=== PATIENT | female | born 1985 | race Caucasian/White ===

== ENCOUNTER 2018-08-19 16:05 | Emergency (ER) | payer MEDICAID ==
[~2018-08-19] VITALS: Ht 157.5 cm; Wt 126.8 kg
[2018-08-19] MEDS ORDERED: KETOROLAC 30 MG/ML VIAL (J1885) IV ONE (16:30)
[2018-08-19] MEDS ORDERED: KETOROLAC 30 MG/ML VIAL (J1885) IM ONE (16:30)
[2018-08-19 16:52] LABS: BASO # 0.1 10^3/uL (0.0-0.2); BASO % 0.7 % (0.0-1.0); EOS # 0.3 10^3/uL (0.0-0.50); EOS % 3.8 % (0.0-3.0); HEMATOCRIT 36.2 % (36.0-47.0); HEMOGLOBIN 11.6 g/dl (12.0-15.5); LYMPH # 3.2 10^3/uL (1.5-4.5); LYMPH % 35.7 % (24.0-44.0); MEAN CORPUSCULAR HEMOGLOBIN 26.1 pg (27.0-33.0); MEAN CORPUSCULAR VOLUME 81.5 fl (80.0-96.0); MONO # 0.8 10^3/uL (0.0-0.8); MONO % 8.9 % (0.0-5.0); NEUTROPHILS # 4.5 10^3/uL (1.8-7.7); NEUTROPHILS % 50.7 % (36.0-66.0); PLATELET COUNT, AUTOMATED 394 10^3/uL (150-450); RED BLOOD COUNT 4.44 10^6/uL (4.00-5.40); WHITE BLOOD COUNT 8.9 10^3/uL (4.0-10.0)
[2018-08-19 16:57] LABS: INR 0.98; PARTIAL THROMBOPLASTIN TIME 31.2 SECONDS (25.4-37.6); PROTHROMBIN TIME 13.1 SECONDS (12.1-14.4)
[2018-08-19 17:19] LABS: ALBUMIN 3.5 GM/DL (3.2-5.2); ALT/SGPT 24 U/L (12-78); AMYLASE 34 U/L (25-115); BILIRUBIN,DIRECT < 0.1 MG/DL (0.0-0.2); BILIRUBIN,TOTAL 0.3 MG/DL (0.2-1.0); BLOOD UREA NITROGEN 9 MG/DL (7-18); CALCIUM LEVEL 8.6 MG/DL (8.5-10.1); CARBON DIOXIDE LEVEL 28 MEQ/L (21-32); CHLORIDE LEVEL 106 MEQ/L (98-107); GLOMERULAR FILTRATION RATE > 60.0 (>60); GLUCOSE, FASTING 124 MG/DL (70-100); LIPASE 146 U/L (73-393); POTASSIUM SERUM 3.6 MEQ/L (3.5-5.1); SODIUM LEVEL 140 MEQ/L (136-145); TOTAL PROTEIN 7.6 GM/DL (6.4-8.2)
--- NOTE | 2018-08-19 17:56 | REP ---
CT ABDOMEN AND PELVIS WITHOUT CONTRAST: CT abdomen and pelvis was performed without IV contrast. Visualized lung bases are clear. Liver, spleen, adrenals, pancreas and kidneys are grossly unremarkable. I see no renal, ureteral or bladder calculus. There is no evidence of hydroureteronephrosis. There is no abdominal aortic aneurysm. There is no adenopathy. There is no free air or free fluid. I see no bowel wall thickening. There is scattered diverticula of the colon without evidence of acute diverticulitis. There is no evidence of appendicitis. There appears to be a cystic structure of the right ovary approximately 3 cm in diameter. The urinary bladder is mildly distended and grossly unremarkable. IMPRESSION: No renal, ureteral, or bladder calculus and no hydroureteronephrosis. No evidence of appendicitis. No free air or free fluid. There is a 3 mm cystic structure of the right ovary. A few scattered colonic diverticula without evidence of acute diverticulitis. Electronically Signed by Gabino Bagley MD 08/19/2018 07:47 P
[2018-08-19 17:57] VITALS: BP 163/94
[2018-08-19] MEDS ORDERED: MACR100C43 PO (17:58)
[2018-08-19] MEDS ORDERED: ROBA500T PO (17:58)
[2018-08-19] MEDS ORDERED: IBUP-1022 PO (17:58)
== END 2018-08-19 18:07 | disposition home or self-care (01) ==
LOC: M ED 16:05
DX: N39.0 Urinary tract infection, site not specified (principal); Z87.442 Personal history of urinary calculi; N83.291 Other ovarian cyst, right side; K57.30 Diverticulosis of large intestine without perforation or abscess without bleeding; Z88.5 Allergy status to narcotic agent; Z91.018 Allergy to other foods
CPT/HCPCS: 36415; 74176; 80048; 80076; 81001; 82150; 83690; 85025; 85610; 85730; 87086; 96374; 99284; J1885

== ENCOUNTER → 2018-09-27 | Outpatient (REF) | payer MEDICAID ==
[~2018-09-27] MED LIST: IBUP-1022 PO; MACR100C43 PO; ROBA500T PO
[2018-09-27 16:58] LABS: CHOLESTEROL RISK RATIO 3.651 (<5); THYROID STIMULATING HORMONE 1.6 uIU/ML (0.358-3.740)
[2018-09-27 17:00] LABS: TOTAL 25(OH) VITAMIN D 20.9 NG/ML (30.0-100.0)
[2018-09-27 18:19] LABS: HEMOGLOBIN A1c 5.7 %
[2018-09-30 00:08] LABS: Lyme Disease IgG/IgM Antibodie <0.91 ISR (0.00-0.90); Lyme Disease IgM Ab Quantitati <0.80 index (0.00-0.79)
== END ==
LOC: M LAB REF 15:41
PROVIDERS: ATTEND Family Medicine
DX: Z13.228 Encounter for screening for other metabolic disorders (principal)

== ENCOUNTER → 2018-10-28 | Outpatient (CLI) | payer MEDICAID ==
[~2018-10-28] MED LIST changes: +AUGM500T34 PO; +CITA20TA6 PO; +LISI-538 PO; +METF-791 PO; +NORC1TAB7 PO
--- NOTE | 2018-10-28 09:30 | REPVR ---
EXAM: MR Lumbar Spine Without Contrast. EXAM DATE/TIME: 10/28/2018 8:22 AM CLINICAL HISTORY: 33 years old, female; Low back pain; Additional info: Acute low back pain TECHNIQUE: Imaging protocol: Multiplanar magnetic resonance images of the lumbar spine without intravenous contrast. COMPARISON: No relevant prior studies available. FINDINGS: Vertebrae: Unremarkable. Spinal cord: Normal signal. No cord compression. L1-L2: No significant disc disease. No significant spinal stenosis. L2-L3: No significant disc disease. No significant spinal stenosis. L3-L4: No significant disc disease. No significant spinal stenosis. L4-L5: Mild loss of signal within the disc at L4-5 on the T2 weighted images reflecting disc desiccation.minimal fluid noted within the facet joint on the left. Mild facet arthropathy. No significant spinal stenosis. L5-S1: No significant disc disease. No significant spinal stenosis. Soft tissues: Unremarkable. IMPRESSION: Mild degenerative disc disease and facet arthropathy at L4-5. No stenosis. No disc herniation. Electronically signed by: My Parnell On 10/28/2018 09:30:09 AM
== END ==
LOC: M RAD 07:57
PROVIDERS: ATTEND Family Medicine
DX: M54.5 Low back pain (principal)

== ENCOUNTER 2018-12-28 17:50 | Emergency (ER) | payer MEDICAID ==
[~2018-12-28] VITALS: Ht 157.5 cm; Wt 122.7 kg
[~2018-12-28 17:50] MED LIST changes: -AUGM500T34 PO; -CITA20TA6 PO; -LISI-538 PO; -METF-791 PO; -NORC1TAB7 PO
[2018-12-28] MEDS ORDERED: CITA20TA6 PO (18:06)
[2018-12-28] MEDS ORDERED: LISI-538 PO (18:06)
[2018-12-28] MEDS ORDERED: ACETAMINOPHEN 325 MG TAB PO ONE (19:15)
[2018-12-28 19:54] LABS: BASO # 0.1 10^3/uL (0.0-0.2); BASO % 0.9 % (0.0-1.0); EOS # 0.1 10^3/uL (0.0-0.5); EOS % 1.5 % (0.0-3.0); HEMATOCRIT 37.8 % (36.0-47.0); HEMOGLOBIN 12.1 g/dl (12.0-15.5); LYMPH # 2.8 10^3/uL (1.5-5.0); LYMPH % 32.6 % (24.0-44.0); MEAN CORPUSCULAR HEMOGLOBIN 25.4 pg (27.0-33.0); MEAN CORPUSCULAR VOLUME 79.4 fl (80.0-96.0); MONO # 0.7 10^3/uL (0.0-0.8); MONO % 8.5 % (0.0-5.0); NEUTROPHILS # 4.8 10^3/uL (1.5-8.5); NEUTROPHILS % 56.2 % (36.0-66.0); PLATELET COUNT, AUTOMATED 415 10^3/uL (150-450); RED BLOOD COUNT 4.76 10^6/uL (4.00-5.40); WHITE BLOOD COUNT 8.6 10^3/uL (4.0-10.0)
[2018-12-28 20:07] LABS: ALBUMIN 3.7 GM/DL (3.2-5.2); ALT/SGPT 22 U/L (12-78); BILIRUBIN,DIRECT 0.1 MG/DL (0.0-0.2); BILIRUBIN,TOTAL 0.4 MG/DL (0.2-1.0); BLOOD UREA NITROGEN 10 MG/DL (7-18); CARBON DIOXIDE LEVEL 29 MEQ/L (21-32); CHLORIDE LEVEL 105 MEQ/L (98-107); CREATININE FOR GFR 0.66 MG/DL (0.55-1.30); GLOMERULAR FILTRATION RATE > 60.0 (>60); GLUCOSE, FASTING 95 MG/DL (70-100); POTASSIUM SERUM 3.5 MEQ/L (3.5-5.1); SODIUM LEVEL 139 MEQ/L (136-145); THYROID STIMULATING HORMONE 0.829 uIU/ML (0.358-3.740); TOTAL PROTEIN 7.6 GM/DL (6.4-8.2)
[2018-12-28 20:15] LABS: HCG, SERUM QUALITATIVE NEGATIVE (NEGATIVE)
[2018-12-28 21:09] VITALS: BP 157/92
== END 2018-12-28 21:10 | disposition home or self-care (01) ==
LOC: M ED 17:50
DX: F43.0 Acute stress reaction (principal); F41.1 Generalized anxiety disorder; I10 Essential (primary) hypertension; Z79.899 Other long term (current) drug therapy; Z88.5 Allergy status to narcotic agent; Z91.018 Allergy to other foods

== ENCOUNTER 2019-02-05 04:24 | Emergency (ER) | payer MEDICAID ==
[~2019-02-05] VITALS: Ht 157.5 cm; Wt 131.8 kg
[~2019-02-05 04:24] MED LIST changes: +CITA20TA6 PO; +LISI-538 PO
[2019-02-05] MEDS ORDERED: AUGM500T34 PO (04:36)
[2019-02-05 04:39] VITALS: BP 136/75
[2019-02-05] MEDS ORDERED: ceFAZolin 1GM INJ (J0690 PER 500MG) IM ONE (04:45)
[2019-02-05] MEDS ORDERED: ACETAMINOPHEN 500 MG TAB PO ONE (04:45)
[2019-02-05] MEDS ORDERED: AUGMENTIN 875 MG TAB PO ONE (04:45)
[2019-02-06] MEDS ORDERED: NORC1TAB7 PO (18:39)
== END 2019-02-05 06:06 | disposition home or self-care (01) ==
LOC: M ED 04:24
DX: L02.221 Furuncle of abdominal wall (principal); I10 Essential (primary) hypertension; F41.9 Anxiety disorder, unspecified; Z79.899 Other long term (current) drug therapy; Z91.018 Allergy to other foods; Z88.5 Allergy status to narcotic agent
CPT/HCPCS: 96372; 99283; J0690

== ENCOUNTER 2019-02-06 16:44 | Emergency (ER) | payer MEDICAID ==
[~2019-02-06] VITALS: Ht 157.5 cm; Wt 129.6 kg
[2019-02-06 16:44] VITALS: BP 191/89
[~2019-02-06 16:44] MED LIST changes: +AUGM500T34 PO
[2019-02-06] MEDS ORDERED: NORCO, ANEXSIA 5/325MG TABLET (HYDROcodone/ACETAMINOPHEN) PO ONE (18:15)
[2019-02-06] MEDS ORDERED: LIDOCAINE 1% MDV 20ML VIAL IM ONE (18:15)
[2019-02-06] MEDS ORDERED: NORC1TAB7 PO (18:39)
[2019-02-06] MEDS ORDERED: NORCO 5/325MG TABLET (BULK FOR ED) PO ONE (18:45)
== END 2019-02-06 18:53 | disposition home or self-care (01) ==
LOC: EEVIPCON 16:44 → M ED 16:44
DX: L02.221 Furuncle of abdominal wall (principal); I10 Essential (primary) hypertension; Z88.6 Allergy status to analgesic agent; Z91.018 Allergy to other foods; Z79.84 Long term (current) use of oral hypoglycemic drugs; Z79.899 Other long term (current) drug therapy

== ENCOUNTER 2019-03-13 20:09 | Emergency (ER) | payer MEDICAID ==
[~2019-03-13] VITALS: Ht 157.5 cm; Wt 125.9 kg
[~2019-03-13 20:09] MED LIST changes: +NORC1TAB7 PO
[2019-03-13] MEDS ORDERED: METF-791 PO (20:25)
[2019-03-13 20:55] LABS: BASO # 0.1 10^3/uL (0.0-0.2); BASO % 0.5 % (0.0-1.0); EOS # 0.3 10^3/uL (0.0-0.5); EOS % 3.3 % (0.0-3.0); HEMATOCRIT 39.3 % (36.0-47.0); HEMOGLOBIN 12.2 g/dl (12.0-15.5); LYMPH # 3.8 10^3/uL (1.5-5.0); LYMPH % 37.3 % (24.0-44.0); MEAN CORPUSCULAR HEMOGLOBIN 24.4 pg (27.0-33.0); MEAN CORPUSCULAR VOLUME 78.4 fl (80.0-96.0); MONO # 0.5 10^3/uL (0.0-0.8); MONO % 5.3 % (0.0-5.0); NEUTROPHILS # 5.4 10^3/uL (1.5-8.5); NEUTROPHILS % 53.2 % (36.0-66.0); PLATELET COUNT, AUTOMATED 391 10^3/uL (150-450); RED BLOOD COUNT 5.01 10^6/uL (4.00-5.40); WHITE BLOOD COUNT 10.2 10^3/uL (4.0-10.0)
[2019-03-13 21:15] LABS: BLOOD UREA NITROGEN 8 MG/DL (7-18); CARBON DIOXIDE LEVEL 29 MEQ/L (21-32); CHLORIDE LEVEL 104 MEQ/L (98-107); CREATININE FOR GFR 0.68 MG/DL (0.55-1.30); GLOMERULAR FILTRATION RATE > 60.0 (>60); GLUCOSE, FASTING 123 MG/DL (70-100); POTASSIUM SERUM 3.3 MEQ/L (3.5-5.1); SODIUM LEVEL 141 MEQ/L (136-145)
[2019-03-13 21:45] LABS: HCG, SERUM QUALITATIVE NEGATIVE (NEGATIVE)
[2019-03-13] MEDS ORDERED: NORCO, ANEXSIA 5/325MG TABLET (HYDROcodone/ACETAMINOPHEN) PO ONE (21:45)
[2019-03-14 00:08] VITALS: BP 151/85
--- NOTE | 2019-03-14 08:38 | REP ---
Pelvic sonography: Repeat dictation. History: Heavy vaginal bleeding. Pain. History of fibroids. Preliminary report is provided at time of exam by [facility]. Findings: Exam quality was inhibited by patient body habitus. Uterus is mildly enlarged measuring 10.0 x 5.5 x 7.5 cm. Endometrial echo is 0.7 cm thick and centrally placed. Uterine myometrium is heterogeneous. There is a 4.2 x 4.5 x 4.0 cm uterine fibroid at the anterior fundal region. Visualized bladder hollis are smooth. The right ovary could not be visualized either transabdominally or transvaginally. Left ovary dimensions are normal at 2.5 x 1.9 x 2.0 cm. Doppler flow is present in the right ovary with resistive index 0.52. Impression: The right ovary was not directly visualized. No adnexal mass, cyst or free fluid is seen on either side. 4.5 cm uterine fibroid suspected. Electronically Signed by Cricket Roman MD 03/14/2019 10:35 A
--- NOTE | 2019-03-14 13:09 | ED PDOC ---
Post-Departure Follow-Up dr carbone faxed formal report of pelvic us for fu Ayala Mccallum MD Mar 14, 2019 13:09
== END 2019-03-14 00:12 | disposition home or self-care (01) ==
LOC: M ED 20:09
DX: N92.0 Excessive and frequent menstruation with regular cycle (principal); D25.9 Leiomyoma of uterus, unspecified; I10 Essential (primary) hypertension; F31.9 Bipolar disorder, unspecified; E66.9 Obesity, unspecified; Z87.442 Personal history of urinary calculi; F17.210 Nicotine dependence, cigarettes, uncomplicated; Z91.018 Allergy to other foods; Z88.5 Allergy status to narcotic agent; Z79.84 Long term (current) use of oral hypoglycemic drugs; Z79.899 Other long term (current) drug therapy

== ENCOUNTER 2019-05-22 16:29 | Emergency (ER) | payer MEDICAID ==
[~2019-05-22] VITALS: Ht 157.5 cm; Wt 128.5 kg
[~2019-05-22 16:29] MED LIST changes: -CLON-412; -GABA-843; -PENI500T PO; -TRAZ-252 PO; -tylenol
[2019-05-22] MEDS ORDERED: CLON-412 (16:35)
[2019-05-22] MEDS ORDERED: GABA-843 (16:35)
[2019-05-22] MEDS ORDERED: tylenol (16:35)
[2019-05-22] MEDS ORDERED: TRAZ-252 PO (16:39)
[2019-05-22] MEDS ORDERED: PENI500T PO (17:02)
[2019-05-22] MEDS ORDERED: NORC1TAB7 PO (17:02)
[2019-05-22 17:08] VITALS: BP 161/74
== END 2019-05-22 17:16 | disposition home or self-care (01) ==
LOC: M ED 16:29
DX: K04.7 Periapical abscess without sinus (principal); K08.89 Other specified disorders of teeth and supporting structures; G50.1 Atypical facial pain; E11.9 Type 2 diabetes mellitus without complications; I10 Essential (primary) hypertension; Z88.5 Allergy status to narcotic agent; Z91.018 Allergy to other foods; Z79.84 Long term (current) use of oral hypoglycemic drugs; Z79.899 Other long term (current) drug therapy

== ENCOUNTER → 2019-05-22 | Outpatient (CLI) | payer MEDICAID ==
[~2019-05-22] MED LIST changes: +CLON-412; +GABA-843; +METF-791 PO; +PENI500T PO; +TRAZ-252 PO; +tylenol
--- NOTE | 2019-05-22 10:20 | REP ---
Thyroid sonography: History: Visible mass anterior neck. No comparison imaging. Findings: High-resolution bilateral thyroid sonography demonstrates a the solid thyroid nodule to the right of midline in the isthmus measuring 3.7 x 3.5 x 2.5 cm. In the midline, isthmic AP diameter is 2.5 cm. Right lobe dimensions are 5.2 x 2.0 x 1.6 cm. Left thyroid lobe dimensions are 4.5 x 1.6 x 1.7 cm. Impression: Large solid thyroid nodule involving the right lobe and the right side of the thyroid isthmus. Consider fine needle aspiration biopsy. Electronically Signed by Cricket Roman MD 05/22/2019 10:12 A
== END ==
LOC: M RAD 09:39
PROVIDERS: ATTEND Physician Assistant
DX: R22.1 Localized swelling, mass and lump, neck (principal)

== ENCOUNTER → 2019-05-23 | Outpatient (CLI) | payer MEDICAID ==
[~2019-05-23] MED LIST changes: +CLON-412; +GABA-843; +PENI500T PO; +TRAZ-252 PO; +tylenol
--- NOTE | 2019-05-23 15:44 | REP ---
LEFT WRIST, FOUR VIEWS: There is no evidence of an acute fracture, dislocation or intrinsic bone disease. IMPRESSION: No fracture or dislocation. Electronically Signed by Gabino Bagley MD 05/24/2019 09:15 A
== END ==
LOC: M RAD 13:21
PROVIDERS: ATTEND Physician Assistant Medical
DX: M25.532 Pain in left wrist (principal)

== ENCOUNTER → 2019-06-02 | Outpatient (CLI) | payer MEDICAID ==
[~2019-06-02] MED LIST changes: +LISI10TA4 PO
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
== END ==
LOC: M PAIN 10:45
PROVIDERS: ATTEND Anesthesiology
DX: M79.18 Myalgia, other site (principal); M54.5 Low back pain; G89.29 Other chronic pain; M47.816 Spondylosis without myelopathy or radiculopathy, lumbar region; E11.9 Type 2 diabetes mellitus without complications; Z79.84 Long term (current) use of oral hypoglycemic drugs; Z79.899 Other long term (current) drug therapy; Z87.891 Personal history of nicotine dependence; Z88.5 Allergy status to narcotic agent; Z88.6 Allergy status to analgesic agent; Z88.8 Allergy status to other drugs, medicaments and biological substances; Z91.018 Allergy to other foods

== ENCOUNTER 2019-06-16 21:30 | Emergency (ER) | payer MEDICAID ==
[~2019-06-16] VITALS: Ht 157.5 cm; Wt 129.6 kg
[2019-06-16] MEDS ORDERED: NS 1,000 ML IV ONE (22:00)
[2019-06-16] MEDS ORDERED: METOCLOPRAMIDE INJ 10MG/2ML VIAL (J2765) IV ONE (22:00)
[2019-06-16] MEDS ORDERED: lisinopriL 10 MG TAB PO ONE (22:00)
[2019-06-16 22:14] VITALS: BP 174/73
[2019-06-16 22:22] VITALS: BP 174/115
[2019-06-16 22:23] LABS: BASO # 0.1 10^3/uL (0.0-0.2); BASO % 0.6 % (0.0-1.0); EOS # 0.2 10^3/uL (0.0-0.5); EOS % 1.6 % (0.0-3.0); HEMATOCRIT 41.9 % (36.0-47.0); HEMOGLOBIN 13.3 g/dl (12.0-15.5); LYMPH # 2.9 10^3/uL (1.5-5.0); LYMPH % 25.5 % (24.0-44.0); MEAN CORPUSCULAR HEMOGLOBIN 24.4 pg (27.0-33.0); MEAN CORPUSCULAR HGB CONC 31.7 g/dl (32.0-36.5); MONO # 0.8 10^3/uL (0.0-0.8); NEUTROPHILS # 7.3 10^3/uL (1.5-8.5); NEUTROPHILS % 64.9 % (36.0-66.0); PLATELET COUNT, AUTOMATED 431 10^3/uL (150-450); RED BLOOD COUNT 5.44 10^6/uL (4.00-5.40); WHITE BLOOD COUNT 11.2 10^3/uL (4.0-10.0)
[2019-06-16] MEDS ORDERED: KETOROLAC 30 MG/ML VIAL (J1885) IV ONE (22:30)
[2019-06-16 22:54] LABS: ALBUMIN 4.1 GM/DL (3.2-5.2); ALT/SGPT 23 U/L (12-78); BILIRUBIN,DIRECT 0.2 MG/DL (0.0-0.2); BILIRUBIN,TOTAL 0.9 MG/DL (0.2-1.0); BLOOD UREA NITROGEN 11 MG/DL (7-18); CALCIUM LEVEL 9.4 MG/DL (8.5-10.1); CARBON DIOXIDE LEVEL 31 MEQ/L (21-32); CHLORIDE LEVEL 102 MEQ/L (98-107); CK-MB VALUE MASS < 1.0 NG/ML (<3.6); CPK CREATINE PHOSPHOKINASE 47 U/L (26-192); CREATININE FOR GFR 0.74 MG/DL (0.55-1.30); GLOMERULAR FILTRATION RATE > 60.0 (>60); GLUCOSE, FASTING 116 MG/DL (70-100); LIPASE 78 U/L (73-393); MB/CK RELATIVE INDEX 2.13 (< OR =4); POTASSIUM SERUM 3.6 MEQ/L (3.5-5.1); SODIUM LEVEL 138 MEQ/L (136-145); TOTAL PROTEIN 8.7 GM/DL (6.4-8.2); TROPONIN I < 0.02 NG/ML (< 0.10)
--- NOTE | 2019-06-17 08:29 | REP ---
CHEST PORTABLE: REASON: Chest pain. FINDINGS: The technique utilized in obtaining the radiograph has magnified the cardiac silhouette and accentuated the interstitial markings. The superior mediastinal structures are midline. The cardiac silhouette is unremarkable in size, shape, and position. The diaphragmatic surfaces of the lungs are regular, and the costophrenic angles are clear. The pulmonary tobias are clear. The imaged osseous structures are intact. IMPRESSION: There is no acute cardiopulmonary disease. Electronically Signed by Herrera Burch DO 06/17/2019 08:31 A
--- NOTE | 2019-06-17 09:27 | REP ---
CT BRAIN WITHOUT CONTRAST: REASON FOR EXAM: Headache. Preliminary report was given by [facility] a the time the examination was performed. There are no priors for comparison. TECHNIQUE: 4.5 mm contiguous transaxial sections were obtained from the skull base to the cerebral convexities with thin cuts through the posterior fossa without the administration of intravenous contrast. FINDINGS: The ventricles and sulci are consistent with the patient's age. There are no extra-axial fluid collections. There is no mass effect. The deep cerebral white matter is consistent with the patient's age. The orbital and petrous structures, cerebellopontine angles, and posterior fossa are unremarkable. The sella turcica, cavernous, and paracavernous structures are essentially unremarkable. The visualized portions of the paranasal sinuses and mastoid air cells are clear. Images of the skull base show no gross abnormality. IMPRESSION: Essentially unremarkable CT examination of the brain. Electronically Signed by Herrera Burch DO 06/17/2019 09:44 A
--- NOTE | 2019-06-17 19:28 | ECGEPIP ---
[facility] - ED Test Date: 2019-06-16 Pat Name: KVNG CARBONE Department: Room: - Gender: Female School Curriculum Developer: : 1985 Requested By: ROSIE GUPTA Order Number: [id number] Reading MD: Yesica Chaparro Measurements Intervals [place] Rate: 89 P: 37 PA: 185 QRS: 15 QRSD: 119 T: 17 QT: 383 QTc: 468 Interpretive Statements SINUS RHYTHM MODERATE INTRAVENTRICULAR CONDUCTION DELAY NSTTW abnormalities NO PRIOR Electronically Signed on 06-17-2019 19:27:44 EDT by Yesica Chaparro
== END 2019-06-16 22:45 | disposition left against medical advice (07) ==
LOC: M ED 21:30
DX: R51 Headache (principal); R07.9 Chest pain, unspecified; Z53.21 Procedure and treatment not carried out due to patient leaving prior to being seen by health care provider; C32.9 Malignant neoplasm of larynx, unspecified; E11.9 Type 2 diabetes mellitus without complications; I10 Essential (primary) hypertension; R56.9 Unspecified convulsions; F31.9 Bipolar disorder, unspecified; Z88.5 Allergy status to narcotic agent; Z91.018 Allergy to other foods; Z79.84 Long term (current) use of oral hypoglycemic drugs; Z79.899 Other long term (current) drug therapy
CPT/HCPCS: 70450; 71045; 80048; 80076; 82550; 82553; 83690; 84439; 84443; 85025; 85379; 93005; 93041; 94760; 96361; 96374; 99284; J2765

== ENCOUNTER → 2019-06-20 | Outpatient (CLI) | payer MEDICAID ==
[2019-06-20 11:33] LABS: FREE T3 3.1 PG/ML (2.2-4.0); FREE T4 1.31 NG/DL (0.76-1.46)
[2019-06-21 14:00] LABS: THYROID PEROXIDASE ANTIBODY < 28.0 U/ML (<60.0)
== END ==
LOC: M LAB 10:03
PROVIDERS: ATTEND Otolaryngology
DX: E04.9 Nontoxic goiter, unspecified (principal)

== ENCOUNTER → 2019-07-17 | Outpatient (CLI) | payer MEDICAID ==
[~2019-07-17] MED LIST changes: +ALBU8.5H IH; -CLON-412; +CLON-412 PO; -GABA-843; +GABA-843 PO; -METF-791 PO; +METF-838 PO
[2019-07-17 15:34] LABS: INR 0.88; PROTHROMBIN TIME 11.6 SECONDS (11.8-14.0)
== END ==
LOC: M LAB 14:37
PROVIDERS: ATTEND Otolaryngology
DX: E04.9 Nontoxic goiter, unspecified (principal)

== ENCOUNTER → 2019-07-24 | Outpatient (CLI) | payer MEDICAID ==
[2019-07-24 13:53] LABS: BASO # 0.1 10^3/uL (0.0-0.2); BASO % 0.5 % (0.0-1.0); EOS # 0.2 10^3/uL (0.0-0.5); EOS % 2.1 % (0.0-3.0); HEMOGLOBIN 11.7 g/dl (12.0-15.5); LYMPH # 2.4 10^3/uL (1.5-5.0); LYMPH % 25.2 % (24.0-44.0); MEAN CORPUSCULAR HEMOGLOBIN 25.4 pg (27.0-33.0); MEAN CORPUSCULAR HGB CONC 31.6 g/dl (32.0-36.5); MEAN CORPUSCULAR VOLUME 80.4 fl (80.0-96.0); MONO # 0.6 10^3/uL (0.0-0.8); MONO % 6.6 % (0.0-5.0); NEUTROPHILS # 6.3 10^3/uL (1.5-8.5); NEUTROPHILS % 65.3 % (36.0-66.0); PLATELET COUNT, AUTOMATED 358 10^3/uL (150-450); WHITE BLOOD COUNT 9.7 10^3/uL (4.0-10.0)
[2019-07-24 14:30] LABS: ALBUMIN 3.7 GM/DL (3.2-5.2); ALT/SGPT 24 U/L (12-78); BILIRUBIN,TOTAL 0.6 MG/DL (0.2-1.0); BLOOD UREA NITROGEN 10 MG/DL (7-18); CALCIUM LEVEL 8.4 MG/DL (8.5-10.1); CARBON DIOXIDE LEVEL 27 MEQ/L (21-32); CHLORIDE LEVEL 105 MEQ/L (98-107); CREATININE FOR GFR 0.58 MG/DL (0.55-1.30); GLOMERULAR FILTRATION RATE > 60.0 (>60); GLUCOSE, FASTING 145 MG/DL (70-100); POTASSIUM SERUM 3.7 MEQ/L (3.5-5.1); SODIUM LEVEL 139 MEQ/L (136-145); TOTAL PROTEIN 7.6 GM/DL (6.4-8.2)
[2019-07-24 15:23] LABS: HEMOGLOBIN A1c 6.4 %
== END ==
LOC: M LAB 12:48
PROVIDERS: ATTEND Physician Assistant
DX: Z01.818 Encounter for other preprocedural examination (principal)

== ENCOUNTER → 2019-07-24 | Outpatient (CLI) | payer MEDICAID | LOC: M LABSMTC 12:20 | PROVIDERS: ATTEND Anesthesiology | DX: Z01.818 Encounter for other preprocedural examination (principal); Z11.59 Encounter for screening for other viral diseases | CPT/HCPCS: C8903; U0003 ==

== ENCOUNTER 2019-08-01 19:03 | Emergency (ER) | payer MEDICAID ==
[~2019-08-01] VITALS: Ht 157.5 cm; Wt 127.8 kg
[2019-08-01 19:55] LABS: BASO # 0.1 10^3/uL (0.0-0.2); BASO % 0.5 % (0.0-1.0); EOS # 0.3 10^3/uL (0.0-0.5); EOS % 2.6 % (0.0-3.0); HEMATOCRIT 34.8 % (36.0-47.0); HEMOGLOBIN 11.2 g/dl (12.0-15.5); LYMPH # 3.5 10^3/uL (1.5-5.0); LYMPH % 28.1 % (24.0-44.0); MEAN CORPUSCULAR HEMOGLOBIN 25.5 pg (27.0-33.0); MEAN CORPUSCULAR HGB CONC 32.2 g/dl (32.0-36.5); MEAN CORPUSCULAR VOLUME 79.1 fl (80.0-96.0); MONO # 0.8 10^3/uL (0.0-0.8); MONO % 6.3 % (0.0-5.0); NEUTROPHILS # 7.7 10^3/uL (1.5-8.5); NEUTROPHILS % 61.8 % (36.0-66.0); PLATELET COUNT, AUTOMATED 486 10^3/uL (150-450); WHITE BLOOD COUNT 12.5 10^3/uL (4.0-10.0)
[2019-08-01] MEDS ORDERED: KETOROLAC 30 MG/ML 1ML VIAL IV ONE (20:00)
[2019-08-01 20:22] LABS: ERYTHROCYTE SEDIMENTATION RATE 42 mm/hr (0-20)
[2019-08-01] MEDS ORDERED: ISOVUE-370 76% 100ML VIAL As Ordered ONE (20:32)
[2019-08-01 20:33] LABS: ALBUMIN 3.7 GM/DL (3.2-5.2); ALT/SGPT 31 U/L (12-78); BILIRUBIN,TOTAL 0.4 MG/DL (0.2-1.0); BLOOD UREA NITROGEN 8 MG/DL (7-18); CALCIUM LEVEL 8.9 MG/DL (8.5-10.1); CARBON DIOXIDE LEVEL 30 MEQ/L (21-32); CHLORIDE LEVEL 103 MEQ/L (98-107); CREATININE FOR GFR 0.76 MG/DL (0.55-1.30); GLOMERULAR FILTRATION RATE > 60.0 (>60); GLUCOSE, FASTING 112 MG/DL (70-100); LIPASE 73 U/L (73-393); SODIUM LEVEL 140 MEQ/L (136-145); TOTAL PROTEIN 7.9 GM/DL (6.4-8.2)
[2019-08-01 22:01] VITALS: BP 155/64
--- NOTE | 2019-08-02 12:18 | REP ---
CT abdomen pelvis with IV but without oral contrast: Repeat dictation. History: Abdomen pain. Previous surgery, 3-D 7 days postop. Status post hysterectomy. Preliminary report is provided at the time of the exam by ariella BROWN. CT contrast dose: 100 ml of intravenous Isovue 370. CT findings: Preliminary digital meteorological equipment repairer radiograph is unremarkable. The lung bases are clear. The liver is mildly prominent measuring 20.4 cm in craniocaudal span in the midclavicular line. No focal liver lesion is seen. The spleen measures 14.2 cm in greatest diameter and is also mildly prominent. No focal splenic lesion is seen. Normal adrenal glands are seen bilaterally. The gallbladder is small and contracted. No abnormalities noted in the pancreas. There is a retroaortic left renal vein noted incidentally. No other vascular abnormality is seen. Small and large intestinal bowel loops are normal in the upper abdomen. A small quantity of free intraperitoneal air in the left lower quadrant. There is no evidence of diffuse ascites. There is some postoperative air in the subcutaneous five fat in the left mid abdominal wall consistent with a brisk optic port placement. Some postoperative edema in the anterior abdominal wall to the right of the umbilicus. No abdominal wall defect is seen. The rectus abdomines musculature is somewhat diastatic. There is a small quantity of fluid in the cul-de-sac. This measures approximately 4.5 cm in diameter. The uterus is surgically absent. No adnexal abnormality is seen. Ovaries are normal in appearance. Normal appendix is seen in the right lower quadrant. The kidneys enhance symmetrically are morphologically intact. No bony abnormality. Impression: Small quantity of postoperative fluid in the cul-de-sac post hysterectomy. A small quantity of residual to left lower quadrant free air and air tracking in the left anterior abdominal wall. Diastases of the rectus abdominous musculature. Mildly prominent liver and spleen size. No other acute abnormality. Electronically Signed by Cricket Roman MD 08/02/2019 12:10 P
[2019-08-21] MEDS ORDERED: LISI-538 PO (09:01)
== END 2019-08-01 22:01 | disposition home or self-care (01) ==
LOC: M ED 19:03
DX: N99.89 Other postprocedural complications and disorders of genitourinary system (principal); G89.18 Other acute postprocedural pain; Z90.710 Acquired absence of both cervix and uterus; I10 Essential (primary) hypertension; F31.9 Bipolar disorder, unspecified; F41.9 Anxiety disorder, unspecified; Z91.048 Other nonmedicinal substance allergy status; Z88.6 Allergy status to analgesic agent; Z91.018 Allergy to other foods; Z79.899 Other long term (current) drug therapy
CPT/HCPCS: 36415; 74177; 80053; 83690; 85025; 85652; 87040; 96374; 99283; J1885; Q9967

== ENCOUNTER 2019-08-05 15:14 | Emergency (ER) | payer MEDICAID ==
[~2019-08-05] VITALS: Ht 157.5 cm; Wt 127.2 kg
[~2019-08-05 15:14] MED LIST changes: +GABA-282 PO; -GABA-843 PO; -LISI-538 PO; +LISI10TA22 PO; -LISI10TA4 PO; +LISI20TA33 PO
[2019-08-05 16:26] LABS: BASO # 0.1 10^3/uL (0.0-0.2); BASO % 0.5 % (0.0-1.0); EOS # 0.3 10^3/uL (0.0-0.5); EOS % 2.2 % (0.0-3.0); HEMOGLOBIN 9.8 g/dl (12.0-15.5); LYMPH # 2.1 10^3/uL (1.5-5.0); MEAN CORPUSCULAR HEMOGLOBIN 25.2 pg (27.0-33.0); MEAN CORPUSCULAR HGB CONC 31.6 g/dl (32.0-36.5); MEAN CORPUSCULAR VOLUME 79.7 fl (80.0-96.0); MONO % 7.4 % (0.0-5.0); NEUTROPHILS # 9.7 10^3/uL (1.5-8.5); NEUTROPHILS % 73.1 % (36.0-66.0); PLATELET COUNT, AUTOMATED 410 10^3/uL (150-450); RED BLOOD COUNT 3.89 10^6/uL (4.00-5.40); WHITE BLOOD COUNT 13.2 10^3/uL (4.0-10.0)
[2019-08-05 16:59] LABS: ALBUMIN 3.3 GM/DL (3.2-5.2); BILIRUBIN,DIRECT 0.2 MG/DL (0.0-0.2); BILIRUBIN,TOTAL 0.5 MG/DL (0.2-1.0); TOTAL PROTEIN 7.5 GM/DL (6.4-8.2)
[2019-08-05] MEDS ORDERED: NITROFURANTOIN (MACROBID) 100 MG CAP PO ONE (17:00)
[2019-08-05] MEDS ORDERED: MACR100C43 PO (17:52)
[2019-08-05 18:07] VITALS: BP 133/69
[2019-08-21] MEDS ORDERED: LISI20TA33 PO (09:01)
== END 2019-08-05 18:09 | disposition home or self-care (01) ==
LOC: M ED 15:14
DX: Z04.71 Encounter for examination and observation following alleged adult physical abuse (principal); N39.0 Urinary tract infection, site not specified; I10 Essential (primary) hypertension; F33.9 Major depressive disorder, recurrent, unspecified; F41.9 Anxiety disorder, unspecified; Z79.899 Other long term (current) drug therapy; Z79.84 Long term (current) use of oral hypoglycemic drugs; Z88.5 Allergy status to narcotic agent; Z88.8 Allergy status to other drugs, medicaments and biological substances; Z91.018 Allergy to other foods; Z91.048 Other nonmedicinal substance allergy status

== ENCOUNTER → 2019-08-21 | Outpatient (REF) | payer MEDICAID ==
[~2019-08-21] MED LIST changes: +CALC1CAP31 PO; +CALC200T15 PO; +CEPH500C PO; +CYTO25TA6 PO; +PERCOCET PO
[2019-08-21 17:33] LABS: BASO # 0.1 10^3/uL (0.0-0.2); BASO % 0.6 % (0.0-1.0); EOS # 0.3 10^3/uL (0.0-0.5); EOS % 2.9 % (0.0-3.0); HEMATOCRIT 34.9 % (36.0-47.0); HEMOGLOBIN 10.6 g/dl (12.0-15.5); LYMPH # 3.5 10^3/uL (1.5-5.0); LYMPH % 33.8 % (24.0-44.0); MEAN CORPUSCULAR HEMOGLOBIN 24.5 pg (27.0-33.0); MEAN CORPUSCULAR HGB CONC 30.4 g/dl (32.0-36.5); MEAN CORPUSCULAR VOLUME 80.8 fl (80.0-96.0); MONO # 0.7 10^3/uL (0.0-0.8); MONO % 6.4 % (0.0-5.0); NEUTROPHILS # 5.7 10^3/uL (1.5-8.5); NEUTROPHILS % 55.9 % (36.0-66.0); PLATELET COUNT, AUTOMATED 454 10^3/uL (150-450); RED BLOOD COUNT 4.32 10^6/uL (4.00-5.40); WHITE BLOOD COUNT 10.2 10^3/uL (4.0-10.0)
[2019-08-21 17:35] LABS: ALBUMIN 3.5 GM/DL (3.2-5.2); ALT/SGPT 18 U/L (12-78); BILIRUBIN,TOTAL 0.4 MG/DL (0.2-1.0); BLOOD UREA NITROGEN 12 MG/DL (7-18); CALCIUM LEVEL 9.1 MG/DL (8.5-10.1); CARBON DIOXIDE LEVEL 26 MEQ/L (21-32); CHLORIDE LEVEL 105 MEQ/L (98-107); CREATININE FOR GFR 0.65 MG/DL (0.55-1.30); GLOMERULAR FILTRATION RATE > 60.0 (>60); GLUCOSE, FASTING 87 MG/DL (70-100); POTASSIUM SERUM 4.5 MEQ/L (3.5-5.1); SODIUM LEVEL 138 MEQ/L (136-145); TOTAL PROTEIN 7.6 GM/DL (6.4-8.2)
== END ==
LOC: M LAB REF 16:31
PROVIDERS: ATTEND Physician Assistant
DX: Z01.818 Encounter for other preprocedural examination (principal); C32.9 Malignant neoplasm of larynx, unspecified; I10 Essential (primary) hypertension

== ENCOUNTER → 2019-08-21 | Outpatient (CLI) | payer MEDICAID ==
[~2019-08-21] MED LIST changes: -GABA-282 PO; +GABA-843 PO; +LISI-538 PO; -LISI10TA22 PO; +LISI10TA4 PO; -LISI20TA33 PO
== END ==
LOC: M LABSMTC 11:08
PROVIDERS: ATTEND Anesthesiology
DX: Z01.818 Encounter for other preprocedural examination (principal); Z11.59 Encounter for screening for other viral diseases
CPT/HCPCS: C9803; U0003

== ENCOUNTER → 2019-08-23 | Outpatient (CLI) | payer MEDICAID ==
[~2019-08-23] MED LIST changes: +GABA-282 PO; -GABA-843 PO; +ISOVUE-370 76% 100ML VIAL As Ordered ONE; -LISI-538 PO; +LISI10TA22 PO; -LISI10TA4 PO; +LISI20TA33 PO
--- NOTE | 2019-08-23 14:01 | REP ---
CT NECK SOFT TISSUES: 08/23/2019 INDICATION: Dysphagia. Thyroid carcinoma. TECHNIQUE: Axial images of the neck soft tissues were obtained following IV iodinated contrast with sagittal and coronal reconstructions provided. COMPARISON: Thyroid ultrasound 07/20/2019. FINDINGS: Thyroid nodule is re-demonstrated within the isthmus. There is no cervical lymphadenopathy. Surgical clip is noted anterior and superior to the thyroid gland just right of the midline. The visualized lungs are clear. No subtle/significant vascular abnormalities are present. The airway is patent. No significant ocular, intraorbital or intracranial abnormalities are present. The submandibular and parotid glands are unremarkable. IMPRESSION: Heterogeneously dense thyroid nodule within the isthmus which essentially remains stable compared to last month. No significant air digestive treat abnormalities. Electronically Signed by Ranjan Panchal DO 08/25/2019 08:39 A
== END ==
LOC: M RAD 08:19
PROVIDERS: ATTEND Otolaryngology
DX: C73 Malignant neoplasm of thyroid gland (principal); R13.10 Dysphagia, unspecified
CPT/HCPCS: 70491; Q9967

== ENCOUNTER 2019-08-24 07:57 | Day surgery (SDC) | payer MEDICAID ==
[~2019-08-24] VITALS: Ht 157.5 cm; Wt 130.2 kg
[2019-08-24] VITALS (8 sets, daily range): BP systolic 133–158; BP diastolic 74–100
[~2019-08-24 07:57] MED LIST changes: -CALC1CAP31 PO; -CALC200T15 PO; -CEPH500C PO; -CYTO25TA6 PO; -GABA-282 PO; +GABA-843 PO; -ISOVUE-370 76% 100ML VIAL As Ordered ONE; +LIDOCAINE 2% 100MG/5ML SDV (FOR ANES.) As Ordered ONE; +LISI-538 PO; -LISI10TA22 PO; +LISI10TA4 PO; -LISI20TA33 PO; +LR 1,000 ML IV ONE; +MIDAZOLAM INJ 2MG/2ML VIAL (J2250 PER 1MG) As Ordered ONE; +ONDANSETRON 4MG/2ML VIAL As Ordered ONE; -PERCOCET PO; +REMIFENTANIL 1MG 3ML VIAL As Ordered ONE; +dexameTHASONE 4 MG/ML 1ML VIAL (J1100 PER 1MG) As Ordered ONE; +dexameTHASONE 4 MG/ML 1ML VIAL (J1100 PER 1MG) IV ONE; +fentaNYL 100 MCG/2 ML INJECTION (J3010) As Ordered ONE; +propofoL 200 MG/20 ML VIAL As Ordered ONE
[2019-08-24] MEDS ORDERED: ROCURONIUM BROMIDE 50 MG/5 ML VIAL As Ordered ONE (09:07)
[2019-08-24] MEDS ORDERED: SUCCINYLCHOLINE 100 MG/5 ML SYRINGE (J0330) As Ordered ONE (09:07)
[2019-08-24] MEDS ORDERED: LIDOCAINE W/EPINEPHRINE 1% 20ML VIAL As Ordered ONE (09:20)
[2019-08-24] MEDS ORDERED: PHENYLEPHRINE 10MG/ML 1ML VIAL (J2370 PER 1) As Ordered ONE (10:12)
[2019-08-24] MEDS ORDERED: fentaNYL 100 MCG/2 ML INJECTION (J3010) As Ordered ONE (10:25)
[2019-08-24] MEDS ORDERED: ACETAMINOPHEN 1000MG 100ML IV BTL (OFIRMEV) (J0131 PER 10MG) As Ordered ONE (10:42)
[2019-08-24] MEDS ORDERED: PHENYLephrine HCL 500 MCG/5 ML (100MCG/ML) SYRINGE (J2370) As Ordered ONE (10:54)
[2019-08-24] MEDS ORDERED: ALBUTEROL 6.7GM INHALER **FOR ANES. CART/OMNICELL ONLY As Ordered ONE (11:16)
[2019-08-24] MEDS ORDERED: ONDANSETRON 4MG/2ML VIAL IV PRN (14:00)
[2019-08-24] MEDS ORDERED: fentaNYL 100 MCG/2 ML INJECTION (J3010) IV PRN (14:00)
[2019-08-24] MEDS ORDERED: LR 1,000 ML IV SCH (14:00)
[2019-08-24] MEDS ORDERED: DEXTROSE 50% 50 ML SYRINGE IV PRN (14:15)
[2019-08-24] MEDS ORDERED: GLUCAGON INJ 1MG VIAL SC PRN (14:15)
[2019-08-24] MEDS ORDERED: ALBUTEROL SULFATE 2.5 MG/0.5 ML INH NEB SOLN INH PRN (14:15)
[2019-08-24] MEDS ORDERED: GLUCOSE 4GM CHEW TABLET PO PRN (14:15)
[2019-08-24] MEDS ORDERED: ACETAMINOPHEN TAB 650MG DOSE (2X325MG) PO PRN (14:15)
--- NOTE | 2019-08-24 14:24 | HPEPDOC ---
General Date of Admission 08/24/2019 Date of Service: Aug 24, 2019 Chief Complaint The patient is a 33-year-old female Who presented to [facility] for an elective procedure with ENT History of Present Illness Patient is a 33-year-old female with PMHx of HTN, DLP, NIDDM2, Asthma and Depression who presented to [facility] for an elective procedure with ENT. Patient had a biopsy of her thyroid completed on 07/19 that had revealed suspicion for papillary carcinoma. Patient was ultimately scheduled for a total thyroidectomy by ENT. Hospital services consultation postoperatively for medical management (following serial calcium levels) and to take over her care. Patient was seen in the recovery room, currently she reports mild nausea, but denies vomiting. Denies any chest pain, shortness of breath, cough, palpitations, abdominal pain, obstipation, diarrhea, urinary discomfort or any recent fevers or chills. Patient reports her appetite is normal and denies any significant changes in her weight. Home Medications Scheduled Citalopram Hydrobromide (Citalopram HBr) 20 Mg Tablet, 20 MG PO DAILY, (Reported) Clonidine HCl (Clonidine HCl) 0.1 Mg Tablet, 0.1 MG PO QHS, (Reported) Gabapentin (Gabapentin) 300 Mg Capsule, 600 MG PO TID, (Reported) Lisinopril (Lisinopril) 20 Mg Tablet, 40 MG PO DAILY, (Reported) Metformin HCl (Metformin HCl ER) 500 Mg Tab.er.24h, 500 MG PO TID, (Reported) Scheduled PRN Albuterol Sulfate (Albuterol Sulfate Hfa) 8.5 Gm Hfa.aer.ad, 8.5 GM IH PRN PRN for WHEEZING, (Reported) Ibuprofen (Ibuprofen) 600 Mg Tablet, 600 MG PO Q6H PRN for PAIN Allergies Coded Allergies: strawberry (Verified Allergy, Severe, ANAPHYLAXIS, 08/21/19) TAPE (Verified Allergy, Intermediate, TEGADERM- RASH, 08/24/19) tramadol (Verified Allergy, Intermediate, HIVES, 08/21/19) acetaminophen (Verified Adverse Reaction, Mild, upset stomach, 08/21/19) codeine (Verified Adverse Reaction, Mild, upset stomach, 08/21/19) Past Medical History Medical History HTN, DLP, NIDDM2, Asthma and Depression Surgical History Hysterectomy Family History - Patient is unaware of any medical problems of her parents Social History - Denies the use of alcohol, tobacco or illicit drugs - Denies recent travel or sick contacts - Lives with fianc and children Review of Systems Other systems 10 point review of systems complete, all negative otherwise stated in HPI Vital Signs - Vitals: BP 129/87, HR 89, RR 18, Sat 98%RA, Temp 97.6F - General: Lying in bed, reporting some pain, AAOx3 - HEENT: NC, AT, PERRLA - CVS: RRR, +S1S2 - Lungs: Poor inspiratory effort bilaterally, No appreciable wheezing / rales / rhonchi - Abdomen: Soft, Non-distended, Non-tender, morbid obesity - Extremities: No lower extremity edema, No calf tenderness - Neuro: No focal motor or sensory deficit - Skin: No visible rashes Laboratory Data Labs 24H Laboratory Tests 2 08/24/19 08:38: Bedside Glucose (Misc Panel) 98 08/24/19 13:41: Bedside Glucose (Misc Panel) 150H Plan / VTE VTE Prophylaxis Ordered?: Yes Plan Plan Post-operative management of total thyroidectomy (POD#0) - Patient was scheduled for an elective total thyroidectomy by ENT, Dr. Tee - Patient has received outpatient medical clearance from her primary care provider - ENT has consulted Hospitalist service for medical management to follow serial calcium and PTH levels [id number] - Will place patient on medical surgical floor with telemetry monitoring - Patient was placed on consistent carbohydrate diet - Discussed pain control with ENT; will continue with Tylenol and Percocet when necessary Suspected JESENIA - Patient is morbidly obese; BMI 52.5; complicating medical care - Patient does not use a CPAP device as an outpatient - Will continue with JESENIA protocol HTN - Blood pressure well controlled - c/w Clonidipine and Lisinopril with holding parameters DLP - Currently not on any medications NIDDM2 - Will start insulin sliding scale Neuropathy - Will continue with gabapentin Asthma - No evidence of exacerbation - c/w Inhaled therapy as ordered Depression - c/w Citalopram DVT prophylaxis - Will start TEDs / Sequentials - Discussed with ENT at this point, will hold off on pharmacological prophylaxis given recent procedure KHALIF EVANS MD Aug 24, 2019 14:24
[2019-08-24] MEDS ORDERED: oxyCODONE 5MG TAB As Ordered ONE (14:46)
[2019-08-24] MEDS: oxyCODONE 5MG TAB PO PRN ×2 (14:47→15:13)
[2019-08-24] MEDS: CitaloPRAM (CeleXA) 20 MG TAB PO SCH (17:17)
[2019-08-24] MEDS: GABAPENTIN 300 MG CAP PO SCH ×2 (17:17→21:27)
[2019-08-24] MEDS: LR 1,000 ML IV SCH (17:18)
[2019-08-24] MEDS: HumaLOG INSULIN (NovoLOG) PER UNIT SC SCH (17:18)
[2019-08-24 17:25] LABS: CALCIUM LEVEL 8.6 MG/DL (8.5-10.1)
[2019-08-24] MEDS ORDERED: lisinopriL 40 MG TAB PO ONE (17:45)
[2019-08-24] MEDS: PERCOCET 5MG/325MG TAB PO PRN (18:50)
[2019-08-24 20:10] LABS: CALCIUM LEVEL 8.2 MG/DL (8.5-10.1)
[2019-08-24] MEDS ORDERED: lisinopriL 20 MG TAB PO SCH (21:00)
[2019-08-24] MEDS ORDERED: HumaLOG INSULIN (NovoLOG) PER UNIT SC SCH (21:00)
[2019-08-24] MEDS ORDERED: cloNIDine 0.1 MG TAB PO SCH (21:00)
[2019-08-24] MEDS: CEPHALEXIN 500 MG CAP PO SCH (22:22)
[2019-08-24] MEDS: CALCIUM CARBONATE 500 MG CHEW U/D PO SCH (22:22)
[2019-08-24] MEDS: CALCITRIOL 0.25 MCG CAP (S0169) PO SCH (22:22)
[2019-08-25] MEDS: PERCOCET 5MG/325MG TAB PO PRN ×3 (01:50→13:55)
[2019-08-25] MEDS: LR 1,000 ML IV SCH (01:51)
[2019-08-25 02:00] VITALS: BP 131/69
[2019-08-25 02:21] LABS: CALCIUM LEVEL 7.8 MG/DL (8.5-10.1)
[2019-08-25 05:50] LABS: BASO % 0.3 % (0.0-1.0); EOS % 0.2 % (0.0-3.0); HEMATOCRIT 31.4 % (36.0-47.0); LYMPH # 2.7 10^3/uL (1.5-5.0); LYMPH % 19.4 % (24.0-44.0); MEAN CORPUSCULAR HEMOGLOBIN 25.3 pg (27.0-33.0); MEAN CORPUSCULAR HGB CONC 31.8 g/dl (32.0-36.5); MEAN CORPUSCULAR VOLUME 79.3 fl (80.0-96.0); MONO # 1.1 10^3/uL (0.0-0.8); MONO % 7.6 % (0.0-5.0); NEUTROPHILS # 10.1 10^3/uL (1.5-8.5); NEUTROPHILS % 72.1 % (36.0-66.0); PLATELET COUNT, AUTOMATED 372 10^3/uL (150-450); RED BLOOD COUNT 3.96 10^6/uL (4.00-5.40)
[2019-08-25 06:00] VITALS: BP 116/64
[2019-08-25 06:10] LABS: BLOOD UREA NITROGEN 12 MG/DL (7-18); CALCIUM LEVEL 7.7 MG/DL (8.5-10.1); CARBON DIOXIDE LEVEL 27 MEQ/L (21-32); CHLORIDE LEVEL 106 MEQ/L (98-107); CREATININE FOR GFR 0.58 MG/DL (0.55-1.30); GLOMERULAR FILTRATION RATE > 60.0 (>60); GLUCOSE, FASTING 110 MG/DL (70-100); MAGNESIUM LEVEL 1.9 MG/DL (1.8-2.4); POTASSIUM SERUM 3.9 MEQ/L (3.5-5.1); SODIUM LEVEL 139 MEQ/L (136-145)
[2019-08-25] MEDS: CALCITRIOL 0.25 MCG CAP (S0169) PO SCH (08:35)
[2019-08-25] MEDS: HumaLOG INSULIN (NovoLOG) PER UNIT SC SCH ×2 (08:35→12:00)
[2019-08-25] MEDS: CitaloPRAM (CeleXA) 20 MG TAB PO SCH (08:36)
[2019-08-25] MEDS: GABAPENTIN 300 MG CAP PO SCH (08:36)
[2019-08-25] MEDS: CALCIUM CARBONATE 500 MG CHEW U/D PO SCH (08:36)
[2019-08-25] MEDS: CEPHALEXIN 500 MG CAP PO SCH (08:36)
[2019-08-25 08:53] LABS: ALBUMIN 2.9 GM/DL (3.2-5.2)
[2019-08-25] MEDS ORDERED: LIOTHYRONINE 25 MCG TAB PO SCH (09:00)
[2019-08-25] MEDS ORDERED: CALC200T15 PO (10:12)
[2019-08-25] MEDS ORDERED: CYTO25TA6 PO (10:12)
[2019-08-25] MEDS ORDERED: PERCOCET PO (10:12)
[2019-08-25] MEDS ORDERED: CEPH500C PO (10:12)
[2019-08-25] MEDS ORDERED: CALC1CAP31 PO (10:12)
--- NOTE | 2019-08-25 13:05 | DS.PDOC ---
Discharge Summary General Date of Admission 08/24/2019 Date of Discharge 08/25/2019 Discharge Summary PROCEDURES PERFORMED DURING STAY: Total thyroidectomy completed 08/24/[address] Tee ADMITTING DIAGNOSES / DISCHARGE DIAGNOSES: Post-operative management of total thyroidectomy Suspected JESENIA HTN DLP NIDDM2 Neuropathy Asthma Depression DVT prophylaxis COMPLICATIONS/CHIEF COMPLAINT: Total thyroidectomy HISTORY OF PRESENT ILLNESS: Patient is a 33-year-old female with PMHx of HTN, DLP, NIDDM2, Asthma and Depression who presented to [facility] for an elective procedure with ENT. Patient had a biopsy of her thyroid completed on 07/19 that had revealed suspicion for papillary carcinoma. Patient was ultimately scheduled for a total thyroidectomy by ENT. Hospital services consultation postoperatively for medical management (following serial calcium levels) and to take over her care. Patient was seen in the recovery room, currently she reports mild nausea, but denies vomiting. Denies any chest pain, shortness of breath, cough, palpitations, abdominal pain, obstipation, diarrhea, urinary discomfort or any recent fevers or chills. HOSPITAL COURSE: Post-operative management of total thyroidectomy (POD#1) - Patient was scheduled for an elective total thyroidectomy by ENT, Dr. Tee - Patient has received outpatient medical clearance from her primary care provider - Currently, patient feels fine and reports that her pain is well-controlled - Patient's calcium level this morning appears to be within normal range after correcting for albumin - Discussed with ENT. Patient will be discharged with calcium, vitamin D and thyroid hormone supplementation - Patient will be given a short course of antibiotics for post operative care - She's been advised to follow-up with her primary care provider, endocrinology, and ENT within the next 7 days Suspected JESENIA - Patient is morbidly obese; BMI 52.5; complicating medical care - Patient does not use a CPAP device as an outpatient - Will continue with JESENIA protocol HTN - Blood pressure well controlled - c/w Clonidine and Lisinopril with holding parameters DLP - Currently not on any medications NIDDM2 - c/w insulin sliding scale Neuropathy - c/w gabapentin Asthma - No evidence of exacerbation - c/w Inhaled therapy as ordered Depression - c/w Citalopram DVT prophylaxis - c/w TEDs / Sequentials - Discussed with ENT at this point, will hold off on pharmacological prophylaxis given recent procedure DISCHARGE MEDICATIONS: Please see below. ALLERGIES: Please see below. PHYSICAL EXAMINATION ON DISCHARGE: Vitals (See below) General: Lying in bed, appears comfortable, AAOx3 HEENT: NC, AT CVS: +S1S2 Lungs: Fair air entry b/l, no appreciable wheezing, rhonchi or rales Abdomen: Soft, ND, NT Extremities: - Edema, - Calf tenderness LABORATORY DATA: Please see below. ACTIVITY: [As tolerated]. DISCHARGE PLAN: Follow up with Bandar Fonseca, endocrinology, ENT within the next 7 days Remain compliant with treatment plan and medications Return to the ER if you experience any problems DISPOSITION: Home DISCHARGE CONDITION: [Stable]. TIME SPENT ON DISCHARGE: 35 minutes Vital Signs/I&Os Vital Signs Date Time Temp Pulse Resp B/P (MAP) Pulse Ox O2 Delivery O2 Flow Rate FiO2 08/25/19 08:05 17 08/25/19 06:00 97.3 77 116/64 (81) 96 08/25/19 02:20 Room Air 08/24/19 15:45 2 I&O- Last 24 Hours up to 6 AM 08/25/19 06:00 Intake Total 5905 ml Output Total 1280 ml Balance 4625 ml Laboratory Data Labs 24H Laboratory Tests 2 08/24/19 13:41: Bedside Glucose (Misc Panel) 150H 08/24/19 14:28: Calcium Level 8.6 08/24/19 16:51: Bedside Glucose (Misc Panel) 142H 08/24/19 19:47: Calcium Level 8.2L 08/24/19 20:35: Bedside Glucose (Misc Panel) 200H 08/25/19 01:43: Calcium Level 7.8L 08/25/19 05:27: Calcium Level 7.7L, Immature Granulocyte % (Auto) 0.4, Neutrophils (%) (Auto) 72.1H, Lymphocytes (%) (Auto) 19.4L, Monocytes (%) (Auto) 7.6H, Eosinophils (%) (Auto) 0.2, Basophils (%) (Auto) 0.3, Neutrophils # (Auto) 10.1H, Lymphocytes # (Auto) 2.7, Monocytes # (Auto) 1.1H, Eosinophils # (Auto) 0.0, Basophils # (Auto) 0.0, Nucleated Red Blood Cells % (auto) 0.0, Anion Gap 6L, Glomerular Filtration Rate > 60.0, Magnesium Level 1.9, Albumin 2.9L 6/19/20 11:46: Bedside Glucose (Misc Panel) 94 CBC/BMP Laboratory Tests 08/25/19 05:27 FSBS Laboratory Tests Test 08/24/19 13:41 08/24/19 16:51 08/24/19 20:35 08/25/19 11:46 Range/Units Bedside Glucose (Misc Panel) 150 142 200 94 70-105 MG/DL Discharge Medications Scheduled Calcitriol (Calcitriol) 0.25 Mcg Capsule, 0.25 MCG PO DAILY Calcium Carbonate (Calcium Carbonate) 200 Mg Tab.chew, 1,000 MG PO TID Cephalexin (Cephalexin) 500 Mg Capsule, 500 MG PO BID Citalopram Hydrobromide (Citalopram HBr) 20 Mg Tablet, 20 MG PO DAILY, (Reported) Clonidine HCl (Clonidine HCl) 0.1 Mg Tablet, 0.1 MG PO QHS, (Reported) Gabapentin (Gabapentin) 300 Mg Capsule, 600 MG PO TID, (Reported) Liothyronine Sodium (Cytomel) 25 Mcg Tablet, 25 MCG PO BID Lisinopril (Lisinopril) 20 Mg Tablet, 40 MG PO DAILY, (Reported) Metformin HCl (Metformin HCl ER) 500 Mg Tab.er.24h, 500 MG PO TID, (Reported) Scheduled PRN Albuterol Sulfate (Albuterol Sulfate Hfa) 8.5 Gm Hfa.aer.ad, 8.5 GM IH PRN PRN for WHEEZING, (Reported) Ibuprofen (Ibuprofen) 600 Mg Tablet, 600 MG PO Q6H PRN for PAIN Oxycodone/Acetaminophen (Oxycodone-Acetaminophen 5-325) 1 Each Tablet, 1 TAB PO Q6HP PRN for MILD/MODERATE PAIN (PS 1-7) Allergies Coded Allergies: strawberry (Verified Allergy, Severe, ANAPHYLAXIS, 08/21/19) TAPE (Verified Allergy, Intermediate, TEGADERM- RASH, 08/24/19) tramadol (Verified Allergy, Intermediate, HIVES, 08/21/19) acetaminophen (Verified Adverse Reaction, Mild, upset stomach, 08/21/19) codeine (Verified Adverse Reaction, Mild, upset stomach, 08/21/19) KHALIF EVANS MD Aug 25, 2019 13:05
[2019-08-25 14:00] VITALS: BP 135/83
[2019-08-25] MEDS ORDERED: NORC1TAB7 PO (14:06)
[2019-08-25 15:50] LABS: PTH INTACT 11.7 PG/ML (18.5-88.0)
[2019-08-25 17:46] LABS: PTH INTACT 14.6 PG/ML (18.5-88.0)
[2019-08-25 18:24] LABS: PTH INTACT 15.6 PG/ML (18.5-88.0)
== END 2019-08-25 15:45 | disposition home or self-care (01) ==
LOC: M SDC 07:57 → M MSPAV 16:45 → M SDC 08-25 15:45
PROVIDERS: ATTEND Otolaryngology
DX: C73 Malignant neoplasm of thyroid gland (principal); I10 Essential (primary) hypertension; E78.49 Other hyperlipidemia; E11.9 Type 2 diabetes mellitus without complications; J45.909 Unspecified asthma, uncomplicated; F32.9 Major depressive disorder, single episode, unspecified; Z79.84 Long term (current) use of oral hypoglycemic drugs; Z79.899 Other long term (current) drug therapy; Z88.5 Allergy status to narcotic agent; Z91.018 Allergy to other foods; E66.01 Morbid (severe) obesity due to excess calories
CPT/HCPCS: 36415; 60271; 80048; 82040; 82310; 83735; 83970; 85025; 88305; 88307; 96360; 96361; J0131; J0330; J1100; J2250; J2370; J2405; J3010

== ENCOUNTER → 2019-08-30 | Outpatient (REF) | payer MEDICAID ==
[~2019-08-30] MED LIST changes: +CALC1CAP31 PO; +CALC200T15 PO; +CEPH500C PO; +CYTO25TA6 PO; -LIDOCAINE 2% 100MG/5ML SDV (FOR ANES.) As Ordered ONE; -LR 1,000 ML IV ONE; -MIDAZOLAM INJ 2MG/2ML VIAL (J2250 PER 1MG) As Ordered ONE; -ONDANSETRON 4MG/2ML VIAL As Ordered ONE; +PERCOCET PO; -REMIFENTANIL 1MG 3ML VIAL As Ordered ONE; -dexameTHASONE 4 MG/ML 1ML VIAL (J1100 PER 1MG) As Ordered ONE; -dexameTHASONE 4 MG/ML 1ML VIAL (J1100 PER 1MG) IV ONE; -fentaNYL 100 MCG/2 ML INJECTION (J3010) As Ordered ONE; -propofoL 200 MG/20 ML VIAL As Ordered ONE
== END ==
LOC: M LAB REF 16:52
PROVIDERS: ATTEND Physician Assistant
DX: Z90.09 Acquired absence of other part of head and neck (principal); C73 Malignant neoplasm of thyroid gland

== ENCOUNTER 2019-08-31 12:10 | Emergency (ER) | payer MEDICAID ==
[~2019-08-31] VITALS: Ht 157.5 cm; Wt 130.4 kg
[2019-08-31] MEDS ORDERED: ISOVUE-370 76% 100ML VIAL As Ordered ONE (14:52)
[2019-08-31] MEDS ORDERED: ACETAMINOPHEN 500 MG TAB PO ONE (15:15)
--- NOTE | 2019-08-31 15:36 | REP ---
CT neck soft tissues: 08/31/2019. Indication: Neck trauma. Fall. Technique: Axial images of the neck soft tissues were obtained following the IV administration of iodinated contrast with sagittal and coronal reconstructions provided. Comparison: 2 recent CTs of the neck soft tissues. Findings: There are no acute soft tissue abnormalities. No abnormal fluid collections are present. The airway appears patent. There is no cervical lymphadenopathy. The previously described heterogeneously dense thyroid nodule is not detected.. The vascular structures are stable. Impression: No pathologic fluid collections or evidence of drainable abscess. Electronically Signed by Ranjan Panchal DO 08/31/2019 03:28 P
[2019-08-31 15:56] VITALS: BP 148/73
== END 2019-08-31 15:58 | disposition home or self-care (01) ==
LOC: M ED 12:10 → EDBD 12:10 → M ED 15:58
DX: S19.9XXA Unspecified injury of neck, initial encounter (principal); W01.10XA Fall on same level from slipping, tripping and stumbling with subsequent striking against unspecified object, initial encounter; I10 Essential (primary) hypertension; E11.9 Type 2 diabetes mellitus without complications; Z79.51 Long term (current) use of inhaled steroids; Z79.891 Long term (current) use of opiate analgesic; Z79.84 Long term (current) use of oral hypoglycemic drugs; Z79.899 Other long term (current) drug therapy; Z85.850 Personal history of malignant neoplasm of thyroid; Z88.5 Allergy status to narcotic agent; Z88.8 Allergy status to other drugs, medicaments and biological substances; Z91.018 Allergy to other foods; Y92.9 Unspecified place or not applicable; Y93.9 Activity, unspecified; Y99.9 Unspecified external cause status
CPT/HCPCS: 70491; 80047; 99284; Q9967

== ENCOUNTER → 2019-10-31 | Outpatient (CLI) | payer MEDICAID ==
--- NOTE | 2019-11-29 09:38 | REP ---
CERVICAL SPINE SERIES CLINICAL: Chronic neck pain. TECHNIQUE: AP, lateral, flexion/extension, bilateral oblique, swimmers views of the cervical spine. FINDINGS: Alignment is maintained. Straightening of normal lordosis is noted and nonspecific. The vertebral bodies and disc spaces are normal and maintained. There is no evidence for significant degenerative change. No acute fracture/compression injury or sublingual. Oblique views demonstrate patent neural foramen. Open-mouth view demonstrates normal C1-C2 articulation and odontoid process. IMPRESSION: Normal age-appropriate cervical spine radiograph series. MTDD
== END ==
LOC: M RAD 10:59
PROVIDERS: ATTEND Physician Assistant
DX: M54.12 Radiculopathy, cervical region (principal)

== ENCOUNTER → 2019-11-02 | Outpatient (REF) | payer MEDICAID ==
[2019-11-02 12:37] LABS: BASO # 0.1 10^3/uL (0.0-0.2); BASO % 0.9 % (0.0-1.0); EOS # 0.4 10^3/uL (0.0-0.5); EOS % 4.1 % (0.0-3.0); HEMATOCRIT 40.7 % (36.0-47.0); HEMOGLOBIN 13.4 g/dl (12.0-15.5); LYMPH % 40.2 % (24.0-44.0); MEAN CORPUSCULAR HEMOGLOBIN 26.7 pg (27.0-33.0); MEAN CORPUSCULAR HGB CONC 32.9 g/dl (32.0-36.5); MEAN CORPUSCULAR VOLUME 81.2 fl (80.0-96.0); MONO # 0.7 10^3/uL (0.0-0.8); NEUTROPHILS # 4.8 10^3/uL (1.5-8.5); NEUTROPHILS % 47.5 % (36.0-66.0); PLATELET COUNT, AUTOMATED 393 10^3/uL (150-450); RED BLOOD COUNT 5.01 10^6/uL (4.00-5.40); WHITE BLOOD COUNT 10.1 10^3/uL (4.0-10.0)
[2019-11-02 13:38] LABS: ALBUMIN 4.4 GM/DL (3.2-5.2); ALT/SGPT 37 U/L (12-78); BILIRUBIN,TOTAL 0.6 MG/DL (0.2-1.0); BLOOD UREA NITROGEN 10 MG/DL (7-18); CALCIUM LEVEL 9.5 MG/DL (8.5-10.1); CARBON DIOXIDE LEVEL 32 MEQ/L (21-32); CHLORIDE LEVEL 102 MEQ/L (98-107); CHOLESTEROL LEVEL 290 MG/DL (<200); CHOLESTEROL RISK RATIO 8.055 (<5); CREATININE FOR GFR 1.09 MG/DL (0.55-1.30); GLOMERULAR FILTRATION RATE > 60.0 (>60); GLUCOSE, FASTING 97 MG/DL (70-100); HDL CHOLESTEROL 36 MG/DL (>40); LDL CHOLESTEROL 210 MG/DL (<100); NON-HDL-C 254 MG/DL; POTASSIUM SERUM 4.1 MEQ/L (3.5-5.1); SODIUM LEVEL 137 MEQ/L (136-145); TOTAL PROTEIN 8.6 GM/DL (6.4-8.2); TRIGLYCERIDES LEVEL 222 MG/DL (<150)
[2019-11-02 13:46] LABS: TOTAL 25(OH) VITAMIN D 15.2 NG/ML (30.0-100.0)
== END ==
LOC: M LAB REF 09:20
PROVIDERS: ATTEND Physician Assistant
DX: E11.9 Type 2 diabetes mellitus without complications (principal); E55.9 Vitamin D deficiency, unspecified; I10 Essential (primary) hypertension

== ENCOUNTER → 2019-11-24 | Outpatient (CLI) | payer MEDICAID | LOC: M RAD 09:58 | PROVIDERS: ATTEND Physician Assistant | DX: Z53.9 Procedure and treatment not carried out, unspecified reason (principal); M54.12 Radiculopathy, cervical region; M54.5 Low back pain ==

== ENCOUNTER → 2019-11-30 | Outpatient (CLI) | payer MEDICAID ==
--- NOTE | 2019-12-07 07:11 | REP ---
LUMBOSACRAL SPINE WITH BENDING VIEWS HISTORY: Back pain, radiculopathy. TECHNIQUE: Seven views of the lumbosacral spine performed in the AP, lateral, and oblique projections. Lateral views are obtained in the neutral position, with flexion and extension as well. There is no compression fracture. There is normal alignment and lumbar lordosis. There is no subluxation with flexion or extension. Tiny spurs are seen at L3 through L5. Disc spaces appear relatively well preserved. The posterior elements are intact. IMPRESSION: No acute fracture. No subluxation. Preservation of disc spaces. Very mild spurring L3 through L5. MTDD
== END ==
LOC: M RAD 13:34
PROVIDERS: ATTEND Physician Assistant
DX: M54.12 Radiculopathy, cervical region (principal); M54.5 Low back pain

== ENCOUNTER 2020-01-04 14:00 | Outpatient (RCR) | payer MEDICAID | END 2020-01-06 | LOC: M PT 14:00 | PROVIDERS: ATTEND Physician Assistant | DX: M54.5 Low back pain (principal) ==

== ENCOUNTER → 2020-01-11 | Outpatient (REF) | payer MEDICAID ==
[2020-01-11 13:55] LABS: HEMATOCRIT 37.6 % (36.0-47.0); HEMOGLOBIN 12.2 g/dl (12.0-15.5); MEAN CORPUSCULAR HEMOGLOBIN 28.6 pg (27.0-33.0); MEAN CORPUSCULAR HGB CONC 32.4 g/dl (32.0-36.5); MEAN CORPUSCULAR VOLUME 88.1 fl (80.0-96.0); PLATELET COUNT, AUTOMATED 348 10^3/uL (150-450); RED BLOOD COUNT 4.27 10^6/uL (4.00-5.40); WHITE BLOOD COUNT 8.8 10^3/uL (4.0-10.0)
[2020-01-11 14:16] LABS: HEMOGLOBIN A1c 5.5 %
[2020-01-11 14:30] LABS: ALBUMIN 4.2 GM/DL (3.2-5.2); ALT/SGPT 30 U/L (12-78); BILIRUBIN,TOTAL 0.5 MG/DL (0.2-1.0); BLOOD UREA NITROGEN 10 MG/DL (7-18); CALCIUM LEVEL 8.8 MG/DL (8.5-10.1); CARBON DIOXIDE LEVEL 30 MEQ/L (21-32); CHLORIDE LEVEL 106 MEQ/L (98-107); CHOLESTEROL LEVEL 194 MG/DL (<200); CHOLESTEROL RISK RATIO 5.105 (<5); CREATININE FOR GFR 1.01 MG/DL (0.55-1.30); GLOMERULAR FILTRATION RATE > 60.0 (>60); GLUCOSE, FASTING 102 MG/DL (70-100); HDL CHOLESTEROL 38 MG/DL (>40); LDL CHOLESTEROL 120 MG/DL (<100); NON-HDL-C 156 MG/DL; POTASSIUM SERUM 3.9 MEQ/L (3.5-5.1); SODIUM LEVEL 140 MEQ/L (136-145); TOTAL PROTEIN 7.9 GM/DL (6.4-8.2); TRIGLYCERIDES LEVEL 181 MG/DL (<150)
== END ==
LOC: M LAB REF 12:43
PROVIDERS: ATTEND Physician Assistant
DX: E11.65 Type 2 diabetes mellitus with hyperglycemia (principal)

== ENCOUNTER 2020-01-18 07:30 | Outpatient (RCR) | payer MEDICAID | END 2020-02-05 | LOC: M PT 07:30 | PROVIDERS: ATTEND Physician Assistant | DX: M54.5 Low back pain (principal) ==

== ENCOUNTER → 2020-02-26 | Outpatient (CLI) | payer MEDICAID ==
--- NOTE | 2020-02-26 11:35 | REP ---
INDICATION: LOW BACK PAIN. COMPARISON: Lumbosacral spine 11/30/2019. TECHNIQUE: Three views sacrum and coccyx. FINDINGS: There is no evidence of fracture or dislocation. No bone lesion is seen. Sacroiliac joints appear unremarkable. IMPRESSION: Negative exam. <Electronically signed by Gabino Bagley > 02/26/20 [id number]
== END ==
LOC: M RAD 11:02
PROVIDERS: ATTEND Physician Assistant
DX: M54.5 Low back pain (principal)

== ENCOUNTER → 2020-04-11 | Outpatient (REF) | payer MEDICAID ==
[~2020-04-11] MED LIST changes: +GABA-282 PO; -GABA-843 PO; -LISI-538 PO; +LISI10TA22 PO; -LISI10TA4 PO; +LISI20TA33 PO
[2020-04-11 13:14] LABS: HEMOGLOBIN 13.1 g/dl (12.0-15.5); MEAN CORPUSCULAR HEMOGLOBIN 28.3 pg (27.0-33.0); MEAN CORPUSCULAR HGB CONC 32.8 g/dl (32.0-36.5); MEAN CORPUSCULAR VOLUME 86.4 fl (80.0-96.0); PLATELET COUNT, AUTOMATED 420 10^3/uL (150-450); RED BLOOD COUNT 4.63 10^6/uL (4.00-5.40); WHITE BLOOD COUNT 10.6 10^3/uL (4.0-10.0)
[2020-04-11 13:42] LABS: ALBUMIN 4.3 GM/DL (3.2-5.2); ALT/SGPT 26 U/L (12-78); BILIRUBIN,TOTAL 0.7 MG/DL (0.2-1.0); BLOOD UREA NITROGEN 13 MG/DL (7-18); CALCIUM LEVEL 9.1 MG/DL (8.5-10.1); CARBON DIOXIDE LEVEL 31 MEQ/L (21-32); CHLORIDE LEVEL 101 MEQ/L (98-107); CHOLESTEROL LEVEL 222 MG/DL (<200); CHOLESTEROL RISK RATIO 6.342 (<5); CREATININE FOR GFR 1.06 MG/DL (0.55-1.30); GLOMERULAR FILTRATION RATE > 60.0 (>60); GLUCOSE, FASTING 110 MG/DL (70-100); HDL CHOLESTEROL 35 MG/DL (>40); LDL CHOLESTEROL 150 MG/DL (<100); NON-HDL-C 187 MG/DL; POTASSIUM SERUM 3.9 MEQ/L (3.5-5.1); SODIUM LEVEL 137 MEQ/L (136-145); TOTAL PROTEIN 8.5 GM/DL (6.4-8.2); TRIGLYCERIDES LEVEL 185 MG/DL (<150)
[2020-04-11 14:13] LABS: HEMOGLOBIN A1c 5.4 %
== END ==
LOC: M LAB REF 12:49
PROVIDERS: ATTEND Physician Assistant
DX: E11.9 Type 2 diabetes mellitus without complications (principal)

== ENCOUNTER 2020-06-19 20:16 | Emergency (ER) | payer MEDICAID ==
[~2020-06-19] VITALS: Ht 160 cm; Wt 147.3 kg
[2020-06-19] MEDS ORDERED: LIDOCAINE 2% W/ EPINEPHRINE 1.7 ML DENTAL INJ SM ONE (22:00)
[2020-06-19 22:25] VITALS: BP 171/89
== END 2020-06-19 22:34 | disposition home or self-care (01) ==
LOC: M ED 20:16
DX: K08.89 Other specified disorders of teeth and supporting structures (principal); E11.9 Type 2 diabetes mellitus without complications; I10 Essential (primary) hypertension; Z79.51 Long term (current) use of inhaled steroids; Z79.899 Other long term (current) drug therapy; Z79.84 Long term (current) use of oral hypoglycemic drugs; Z91.018 Allergy to other foods

== ENCOUNTER → 2020-07-12 | Outpatient (CLI) | payer MEDICAID ==
[~2020-07-12] MED LIST changes: +VENL37TA PO
== END ==
LOC: M LABSMTC 11:40
PROVIDERS: ATTEND Anesthesiology
DX: Z20.828 Contact with and (suspected) exposure to other viral communicable diseases (principal); Z11.59 Encounter for screening for other viral diseases

== ENCOUNTER → 2020-07-16 | Outpatient (REF) | payer MEDICAID ==
[2020-07-16 17:11] LABS: HEMOGLOBIN A1c 5.8 %
[2020-07-16 17:27] LABS: ALBUMIN 4.1 GM/DL (3.2-5.2); ALT/SGPT 29 U/L (12-78); BILIRUBIN,TOTAL 0.5 MG/DL (0.2-1.0); BLOOD UREA NITROGEN 6 MG/DL (7-18); CALCIUM LEVEL 8.8 MG/DL (8.5-10.1); CARBON DIOXIDE LEVEL 29 MEQ/L (21-32); CHLORIDE LEVEL 104 MEQ/L (98-107); CREATININE FOR GFR 0.83 MG/DL (0.55-1.30); GLOMERULAR FILTRATION RATE > 60.0 (>60); GLUCOSE, FASTING 101 MG/DL (70-100); POTASSIUM SERUM 3.8 MEQ/L (3.5-5.1); SODIUM LEVEL 138 MEQ/L (136-145); TOTAL PROTEIN 8.1 GM/DL (6.4-8.2)
== END ==
LOC: M LAB REF 15:42
PROVIDERS: ATTEND Physician Assistant
DX: E11.9 Type 2 diabetes mellitus without complications (principal)

== ENCOUNTER 2020-07-17 10:00 | Day surgery (SDC) | payer MEDICAID ==
[~2020-07-17] VITALS: Ht 157.5 cm; Wt 136.6 kg
[~2020-07-17 10:00] MED LIST changes: +LR 1,000 ML IV ONE
[2020-07-17] MEDS ORDERED: dexameTHASONE 4 MG/ML 1ML VIAL (J1100 PER 1MG) As Ordered ONE (10:04)
[2020-07-17] MEDS ORDERED: propofoL 200 MG/20 ML VIAL As Ordered ONE (10:04)
[2020-07-17] MEDS ORDERED: MIDAZOLAM INJ 2MG/2ML VIAL (J2250 PER 1MG) As Ordered ONE (10:04)
[2020-07-17] MEDS ORDERED: ONDANSETRON 4MG/2ML VIAL As Ordered ONE (10:04)
[2020-07-17] MEDS ORDERED: SUCCINYLCHOLINE 100 MG/5 ML SYRINGE (J0330) As Ordered ONE (10:04)
[2020-07-17] MEDS ORDERED: ROCURONIUM BROMIDE 50 MG/5 ML VIAL As Ordered ONE (10:04)
[2020-07-17] MEDS ORDERED: KETOROLAC 60MG 2ML VIAL As Ordered ONE (10:04)
[2020-07-17] MEDS ORDERED: LIDOCAINE 2% 100MG/5ML SDV (FOR ANES.) As Ordered ONE (10:04)
[2020-07-17] MEDS ORDERED: fentaNYL 100 MCG/2 ML INJECTION (J3010) As Ordered ONE ×2 (10:05→11:39)
[2020-07-17] MEDS ORDERED: SUGAMMADEX SODIUM 500 MG/5 ML VIAL (BRIDION) As Ordered ONE (10:11)
[2020-07-17] MEDS ORDERED: LIDOCAINE W/EPINEPHRINE 1% 20ML VIAL As Ordered ONE (10:34)
[2020-07-17] MEDS: fentaNYL 100 MCG/2 ML INJECTION (J3010) IV PRN ×2 (11:45→11:50)
[2020-07-17] MEDS ORDERED: PERCOCET 5MG/325MG TAB PO PRN (11:55)
[2020-07-17] MEDS ORDERED: METOCLOPRAMIDE INJ 10MG/2ML VIAL (J2765 PER 1) IV PRN (11:55)
[2020-07-17] MEDS ORDERED: MORPHINE 2 MG/ML 1ML VIAL (J2270) IV PRN (11:55)
[2020-07-17] MEDS ORDERED: LR 1,000 ML IV SCH ×2 (11:55→12:20)
[2020-07-17] MEDS ORDERED: ONDANSETRON 4MG/2ML VIAL IV PRN (11:55)
[2020-07-17 13:20] VITALS: BP 132/87
--- NOTE | 2020-07-18 09:16 | RO ---
OPERATIVE NOTE DATE OF OPERATION: 07/17/2020 PREOPERATIVE DIAGNOSIS: Nonrestorable teeth. POSTOPERATIVE DIAGNOSIS: Nonrestorable teeth. PROCEDURE PERFORMED: Extraction of teeth #2, 3, 7, 8, 9, 11, 12, 28, and 29. SURGEON: Abelardo Avila DMD. GLUER MACHINE OPERATOR: ANESTHESIA: General. ESTIMATED BLOOD LOSS: 10 mL. SPECIMEN: Teeth. DESCRIPTION OF PROCEDURE: The rest of this dictation will be completed in [facility].
== END 2020-07-17 13:35 | disposition home or self-care (01) ==
LOC: M SDC 10:00
PROVIDERS: ATTEND Dentist Oral and Maxillofacial Surgery
DX: K02.9 Dental caries, unspecified (principal); E11.9 Type 2 diabetes mellitus without complications; I10 Essential (primary) hypertension; J45.909 Unspecified asthma, uncomplicated; E03.9 Hypothyroidism, unspecified; Z79.84 Long term (current) use of oral hypoglycemic drugs; Z79.899 Other long term (current) drug therapy; Z85.850 Personal history of malignant neoplasm of thyroid; Z88.5 Allergy status to narcotic agent; Z88.8 Allergy status to other drugs, medicaments and biological substances; Z91.018 Allergy to other foods; F41.9 Anxiety disorder, unspecified; F32.9 Major depressive disorder, single episode, unspecified
CPT/HCPCS: 88300; D7210; D9223; J0330; J1100; J1885; J2250; J2405; J3010

== ENCOUNTER → 2021-04-23 | Outpatient (CLI) | payer MEDICAID ==
[~2021-04-23] MED LIST changes: -LR 1,000 ML IV ONE
== END ==
LOC: M RAD 07:34
PROVIDERS: ATTEND Physician Assistant
DX: M54.50 Low back pain, unspecified (principal); M47.817 Spondylosis without myelopathy or radiculopathy, lumbosacral region; M54.12 Radiculopathy, cervical region; M47.812 Spondylosis without myelopathy or radiculopathy, cervical region; M79.18 Myalgia, other site; R32 Unspecified urinary incontinence

== ENCOUNTER → 2021-05-22 | Outpatient (CLI) | payer MEDICAID ==
[2021-05-22 10:14] LABS: BLOOD UREA NITROGEN 9 MG/DL (7-18); CREATININE FOR GFR 0.88 MG/DL (0.55-1.30); GLOMERULAR FILTRATION RATE > 60.0 (>60)
== END ==
LOC: M LAB 09:07
PROVIDERS: ATTEND Otolaryngology
DX: Z01.812 Encounter for preprocedural laboratory examination (principal)

== ENCOUNTER → 2021-10-02 | Outpatient (CLI) | payer MEDICAID | LOC: M PAIN 13:30 | PROVIDERS: ATTEND Nurse Practitioner Family | DX: M51.16 Intervertebral disc disorders with radiculopathy, lumbar region (principal); M54.50 Low back pain, unspecified; G89.29 Other chronic pain; E11.9 Type 2 diabetes mellitus without complications; Z86.14 Personal history of Methicillin resistant Staphylococcus aureus infection; J45.909 Unspecified asthma, uncomplicated; F17.210 Nicotine dependence, cigarettes, uncomplicated; Z86.59 Personal history of other mental and behavioral disorders; Z88.5 Allergy status to narcotic agent; Z88.8 Allergy status to other drugs, medicaments and biological substances; E66.01 Morbid (severe) obesity due to excess calories; Z68.45 Body mass index [BMI] 70 or greater, adult; Z79.84 Long term (current) use of oral hypoglycemic drugs; Z79.899 Other long term (current) drug therapy ==

== ENCOUNTER → 2022-04-24 | Outpatient (CLI) | payer MEDICAID | LOC: M PAIN 10:15 | PROVIDERS: ATTEND Nurse Practitioner Family | DX: M79.18 Myalgia, other site (principal); M54.50 Low back pain, unspecified; G89.29 Other chronic pain; E11.9 Type 2 diabetes mellitus without complications; I10 Essential (primary) hypertension; J45.909 Unspecified asthma, uncomplicated; F17.200 Nicotine dependence, unspecified, uncomplicated; Z86.14 Personal history of Methicillin resistant Staphylococcus aureus infection; Z86.59 Personal history of other mental and behavioral disorders; Z88.5 Allergy status to narcotic agent; Z88.8 Allergy status to other drugs, medicaments and biological substances; E66.01 Morbid (severe) obesity due to excess calories; Z68.44 Body mass index [BMI] 60.0-69.9, adult; Z79.84 Long term (current) use of oral hypoglycemic drugs; Z79.899 Other long term (current) drug therapy ==

== ENCOUNTER → 2022-05-07 | Outpatient (REF) | payer MEDICAID ==
[2022-05-07 17:39] LABS: HEMATOCRIT 40.2 % (36.0-47.0); HEMOGLOBIN 12.8 g/dl (12.0-15.5); MEAN CORPUSCULAR HEMOGLOBIN 27.9 pg (27.0-33.0); MEAN CORPUSCULAR HGB CONC 31.8 g/dl (32.0-36.5); MEAN CORPUSCULAR VOLUME 87.8 fl (80.0-96.0); PLATELET COUNT, AUTOMATED 422 10^3/uL (150-450); RED BLOOD COUNT 4.58 10^6/uL (4.00-5.40); WHITE BLOOD COUNT 10.2 10^3/uL (4.0-10.0)
[2022-05-07 18:15] LABS: ALBUMIN 3.9 G/DL (3.2-5.2); ALKALINE PHOSPHATASE 89 U/L (46-116); ALT/SGPT 25 U/L (7.0-40); AST/SGOT 20 U/L (<34); BILIRUBIN,TOTAL 0.7 MG/DL (0.3-1.2); BLOOD UREA NITROGEN 10 MG/DL (9-23); CALCIUM LEVEL 8.8 MG/DL (8.5-10.1); CARBON DIOXIDE LEVEL 28 MMOL/L (20-31); CHLORIDE LEVEL 100 MMOL/L (98-107); CHOLESTEROL LEVEL 182 MG/DL (<200); CHOLESTEROL RISK RATIO 4.87 (<5); CREATININE FOR GFR 0.74 MG/DL (0.55-1.30); GLOMERULAR FILTRATION RATE > 60.0 (>60); GLUCOSE, FASTING 87 MG/DL (60-100); HDL CHOLESTEROL 37.3 MG/DL (>40); LDL CHOLESTEROL 117.7 MG/DL (<100); NON-HDL-C 145 MG/DL; POTASSIUM SERUM 4.4 MMOL/L (3.5-5.1); SODIUM LEVEL 138 MMOL/L (136-145); TOTAL PROTEIN 7.8 G/DL (5.7-8.2); TRIGLYCERIDES LEVEL 135 MG/DL (<150)
[2022-05-07 18:43] LABS: HEPATITIS C VIRUS ABY INDEX 0.2 INDEX (<0.8)
== END ==
LOC: M LAB REF 16:32
PROVIDERS: ATTEND Physician Assistant
DX: E11.65 Type 2 diabetes mellitus with hyperglycemia (principal); Z11.59 Encounter for screening for other viral diseases; E55.9 Vitamin D deficiency, unspecified

== ENCOUNTER → 2022-12-21 | Outpatient (REF) | payer MEDICAID ==
[2022-12-26 04:07] LABS: CANNABINOID, URINE Positive (Cutoff=20); CARBOXY THC (GC/MS) 225 ng/mL (Cutoff=10); CREATININE, URINE 267.9 mg/dL (20.0-300.0)
== END ==
LOC: M LAB REF 16:19
PROVIDERS: ATTEND Nurse Practitioner Family
DX: Z79.899 Other long term (current) drug therapy (principal)

== ENCOUNTER → 2022-12-21 | Outpatient (REF) | payer MEDICAID ==
[2022-12-21 19:30] LABS: HEMOGLOBIN A1c 5.4 % (4.0-6.0)
[2022-12-21 19:44] LABS: TOTAL 25(OH) VITAMIN D 12.2 NG/ML (20.0-100.0)
[2022-12-21 19:51] LABS: ALBUMIN 4.1 G/DL (3.2-5.2); ALKALINE PHOSPHATASE 84 U/L (46-116); ALT/SGPT 30 U/L (7.0-40); AST/SGOT 22 U/L (<34); BILIRUBIN,TOTAL 0.6 MG/DL (0.3-1.2); BLOOD UREA NITROGEN 11 MG/DL (9-23); CALCIUM LEVEL 8.8 MG/DL (8.5-10.1); CARBON DIOXIDE LEVEL 28 MMOL/L (20-31); CHLORIDE LEVEL 104 MMOL/L (98-107); CHOLESTEROL LEVEL 199 MG/DL (<200); CHOLESTEROL RISK RATIO 5.03 (<5); CREATININE FOR GFR 0.79 MG/DL (0.55-1.30); GLOMERULAR FILTRATION RATE > 60.0 (>60); GLUCOSE, FASTING 86 MG/DL (60-100); HDL CHOLESTEROL 39.5 MG/DL (>40); LDL CHOLESTEROL 135.5 MG/DL (<100); NON-HDL-C 159.5 MG/DL; SODIUM LEVEL 140 MMOL/L (136-145); TOTAL PROTEIN 7.8 G/DL (5.7-8.2); TRIGLYCERIDES LEVEL 120 MG/DL (<150)
== END ==
LOC: M LAB REF 17:32
PROVIDERS: ATTEND Physician Assistant
DX: E11.65 Type 2 diabetes mellitus with hyperglycemia (principal); E55.9 Vitamin D deficiency, unspecified; E78.2 Mixed hyperlipidemia

== ENCOUNTER → 2023-01-13 | Outpatient (REF) | payer MEDICAID | LOC: M SFHCDERM 14:22 | PROVIDERS: ATTEND Physician Assistant | DX: D49.2 Neoplasm of unspecified behavior of bone, soft tissue, and skin (principal) ==

== ENCOUNTER → 2023-02-08 | Outpatient (REF) | payer MEDICAID | LOC: M LAB REF 16:12 | PROVIDERS: ATTEND Nurse Practitioner Family | DX: N39.0 Urinary tract infection, site not specified (principal); Z79.899 Other long term (current) drug therapy ==

== ENCOUNTER 2023-03-11 11:06 | Emergency (ER) | payer MEDICAID ==
[~2023-03-11] VITALS: Ht 157.5 cm; Wt 123.0 kg
[2023-03-11] MEDS ORDERED: DULO1CAP5 (11:24)
[2023-03-11] MEDS ORDERED: ALPR0.5T3 (11:24)
[2023-03-11] MEDS ORDERED: GABA800T4 (11:24)
[2023-03-11] MEDS ORDERED: DULO1CAP6 (11:25)
[2023-03-11] MEDS ORDERED: LIDOCAINE 5% (LIDODERM) PATCH TD ONE (13:30)
[2023-03-11] MEDS ORDERED: KETOROLAC 30 MG/ML 1ML VIAL IM ONE (14:00)
[2023-03-11] MEDS ORDERED: ASPE4PAD TOP (14:41)
[2023-03-11] MEDS ORDERED: KETO10TAB PO (14:41)
[2023-03-11 14:47] VITALS: BP 156/100; TEMP 96.7; O2SAT 96
== END 2023-03-11 14:48 | disposition home or self-care (01) ==
LOC: M ED 11:06
DX: S13.4XXA Sprain of ligaments of cervical spine, initial encounter (principal); F17.210 Nicotine dependence, cigarettes, uncomplicated; Z79.899 Other long term (current) drug therapy; Z79.84 Long term (current) use of oral hypoglycemic drugs; Z79.51 Long term (current) use of inhaled steroids; Z79.1 Long term (current) use of non-steroidal anti-inflammatories (NSAID); Z79.890 Hormone replacement therapy; Z88.8 Allergy status to other drugs, medicaments and biological substances; Z91.048 Other nonmedicinal substance allergy status; Z88.5 Allergy status to narcotic agent; Y92.9 Unspecified place or not applicable; Y93.9 Activity, unspecified
CPT/HCPCS: 96372; 99284; J1885

== ENCOUNTER → 2023-06-30 | Outpatient (CLI) | payer MEDICAID ==
[~2023-06-30] MED LIST changes: +ALPR0.5T3; +ASPE4PAD TOP; +DULO1CAP5; +DULO1CAP6; +GABA800T4; +KETO10TAB PO
[2023-06-30 10:42] LABS: HEMATOCRIT 43.4 % (36.0-47.0); MEAN CORPUSCULAR HEMOGLOBIN 27.3 pg (27.0-33.0); MEAN CORPUSCULAR HGB CONC 32.3 g/dl (32.0-36.5); MEAN CORPUSCULAR VOLUME 84.6 fl (80.0-96.0); PLATELET COUNT, AUTOMATED 457 10^3/uL (150-450); RED BLOOD COUNT 5.13 10^6/uL (4.00-5.40); WHITE BLOOD COUNT 10.9 10^3/uL (4.0-10.0)
[2023-06-30 10:53] LABS: HEMOGLOBIN A1c 5.4 % (4.0-6.0)
[2023-06-30 11:00] LABS: ALBUMIN 4.6 G/DL (3.2-5.2); ALKALINE PHOSPHATASE 82 U/L (46-116); ALT/SGPT 20 U/L (7.0-40); AST/SGOT 15 U/L (<34); BILIRUBIN,TOTAL 0.8 MG/DL (0.3-1.2); BLOOD UREA NITROGEN 17 MG/DL (9-23); CALCIUM LEVEL 10.1 MG/DL (8.5-10.1); CARBON DIOXIDE LEVEL 32 MMOL/L (20-31); CHLORIDE LEVEL 100 MMOL/L (98-107); CHOLESTEROL LEVEL 198 MG/DL (<200); GLOMERULAR FILTRATION RATE > 60.0 (>60); GLUCOSE, FASTING 89 MG/DL (60-100); HDL CHOLESTEROL 34.1 MG/DL (>40); LDL CHOLESTEROL 133.3 MG/DL (<100); NON-HDL-C 163.9 MG/DL; POTASSIUM SERUM 4.2 MMOL/L (3.5-5.1); SODIUM LEVEL 138 MMOL/L (136-145); TOTAL 25(OH) VITAMIN D 8.9 NG/ML (20.0-100.0); TOTAL PROTEIN 8.4 G/DL (5.7-8.2); TRIGLYCERIDES LEVEL 153 MG/DL (<150)
[2023-06-30 12:04] LABS: CREATININE, URINE 125.8 MG/DL; MAU/CREAT RATIO 72.3 MCG/MG (0.0-30.0)
[2023-06-30 14:37] LABS: APPEARANCE, URINE CLOUDY (CLEAR); BACTERIA, URINE AUTO 2+ (NEGATIVE); BILIRUBIN, URINE AUTO NEGATIVE (NEGATIVE); BLOOD, URINE BLOOD 1+ (NEGATIVE); COLOR, URINE AMBER (YELLOW); GLUCOSE, URINE (UA) AUTO NEGATIVE (NEGATIVE); KETONE, URINE AUTO NEGATIVE (NEGATIVE); LEUKOCYTE ESTERASE, URINE AUTO 2+ (NEGATIVE); MUCUS, URINE SMALL (NEGATIVE); NITRITE, URINE AUTO POSITIVE (NEGATIVE); PROTEIN, URINE AUTO 1+ mg/dL (NEGATIVE); RBC, URINE AUTO 7 /HPF (0-3); SPECIFIC GRAVITY URINE AUTO 1.015 (1.002-1.035); SQUAMOUS EPITHELIAL CELL UR AU 14 /HPF (0-6); WBC, URINE AUTO 152 /HPF (0-3)
== END ==
LOC: M LAB 09:02
PROVIDERS: ATTEND Physician Assistant
DX: E55.9 Vitamin D deficiency, unspecified (principal); E11.65 Type 2 diabetes mellitus with hyperglycemia

== ENCOUNTER → 2023-07-12 | Outpatient (REF) | payer MEDICAID ==
[2023-07-12 18:49] LABS: THYROID STIMULATING HORMONE 84.351 uIU/ML (0.55-4.78)
[2023-07-12 18:52] LABS: FREE T4 0.44 NG/DL (0.89-1.76)
== END ==
LOC: M LAB REF 16:11
PROVIDERS: ATTEND Physician Assistant
DX: Z90.89 Acquired absence of other organs (principal)

== ENCOUNTER → 2023-11-17 | Outpatient (REF) | payer MEDICAID ==
[~2023-11-17] MED LIST changes: +GABA-1635; -GABA800T4
[2023-11-17 17:43] LABS: THYROID STIMULATING HORMONE 71.274 uIU/ML (0.55-4.78)
[2023-11-17 17:44] LABS: FREE T4 0.51 NG/DL (0.89-1.76)
[2023-11-17 17:46] LABS: ALKALINE PHOSPHATASE 80 U/L (46-116); ALT/SGPT 15 U/L (7.0-40); AST/SGOT 10 U/L (<34); BILIRUBIN,TOTAL 0.4 MG/DL (0.3-1.2); BLOOD UREA NITROGEN 9 MG/DL (9-23); CALCIUM LEVEL 9.4 MG/DL (8.5-10.1); CARBON DIOXIDE LEVEL 29 MMOL/L (20-31); CHLORIDE LEVEL 107 MMOL/L (98-107); CHOLESTEROL LEVEL 159 MG/DL (<200); CHOLESTEROL RISK RATIO 4.62 (<5); CREATININE FOR GFR 0.73 MG/DL (0.55-1.30); GLOMERULAR FILTRATION RATE > 60.0 (>60); GLUCOSE, FASTING 97 MG/DL (60-100); HDL CHOLESTEROL 34.4 MG/DL (>40); LDL CHOLESTEROL 95.4 MG/DL (<100); NON-HDL-C 124.6 MG/DL; SODIUM LEVEL 141 MMOL/L (136-145); TOTAL PROTEIN 7.6 G/DL (5.7-8.2); TRIGLYCERIDES LEVEL 146 MG/DL (<150)
[2023-11-17 17:49] LABS: HEMATOCRIT 39.9 % (36.0-47.0); HEMOGLOBIN 12.7 g/dl (12.0-15.5); MEAN CORPUSCULAR HEMOGLOBIN 27.7 pg (27.0-33.0); MEAN CORPUSCULAR HGB CONC 31.8 g/dl (32.0-36.5); MEAN CORPUSCULAR VOLUME 87.1 fl (80.0-96.0); PLATELET COUNT, AUTOMATED 394 10^3/uL (150-450); RED BLOOD COUNT 4.58 10^6/uL (4.00-5.40); WHITE BLOOD COUNT 11.9 10^3/uL (4.0-10.0)
[2023-11-17 18:27] LABS: HEMOGLOBIN A1c 5.5 % (4.0-6.0)
== END ==
LOC: M LAB REF 16:50
PROVIDERS: ATTEND Physician Assistant
DX: E11.65 Type 2 diabetes mellitus with hyperglycemia (principal); Z90.89 Acquired absence of other organs

== ENCOUNTER → 2023-11-17 | Outpatient (REF) | payer MEDICAID ==
[2023-11-17 18:20] LABS: CREATININE, URINE 251.1 MG/DL; MAU/CREAT RATIO 9.1 MCG/MG (0.0-30.0)
== END ==
LOC: M LAB REF 16:35
PROVIDERS: ATTEND Physician Assistant
DX: E11.65 Type 2 diabetes mellitus with hyperglycemia (principal)

== ENCOUNTER → 2023-12-30 | Outpatient (CLI) | payer MEDICAID ==
[~2023-12-30] MED LIST changes: +GABA-1172 PO; -GABA-282 PO
== END ==
LOC: M RAD 09:50
PROVIDERS: ATTEND Physician Assistant
DX: M25.562 Pain in left knee (principal)

== ENCOUNTER → 2024-01-03 | Outpatient (CLI) | payer MEDICAID | LOC: M RAD 13:02 | PROVIDERS: ATTEND Internal Medicine | DX: C73 Malignant neoplasm of thyroid gland (principal) ==

== ENCOUNTER 2024-10-14 00:16 | Emergency (ER) | payer MEDICAID, OTHER ==
[~2024-10-14] VITALS: Ht 162.6 cm; Wt 117.3 kg
[~2024-10-14 00:16] MED LIST changes: -DULO1CAP5; +DULO1CAP5 PO; -DULO1CAP6; +DULO1CAP6 PO; -GABA-1635; +GABA-1635 PO
[2024-10-14] MEDS ORDERED: LEVO200T4 PO (00:36)
[2024-10-14] MEDS ORDERED: TRIA1OI TOP (00:36)
[2024-10-14] MEDS ORDERED: LISI40TA10 PO (00:36)
[2024-10-14] MEDS ORDERED: SEMA0.257 SQ (00:36)
[2024-10-14] MEDS ORDERED: ALPR1TAB3 PO (00:36)
[2024-10-14 05:27] VITALS: BP 138/81; TEMP 98.2; O2SAT 96
[2024-10-14] MEDS: DALBAVANCIN 1,500 MG in D5W 250 ML IV ONE (05:56)
== END 2024-10-14 06:35 | disposition home or self-care (01) ==
LOC: M ED 00:16 → EDBD 00:16 → M ED 06:35
DX: R21 Rash and other nonspecific skin eruption (principal); F17.200 Nicotine dependence, unspecified, uncomplicated; F12.10 Cannabis abuse, uncomplicated; F10.10 Alcohol abuse, uncomplicated; Z88.5 Allergy status to narcotic agent; Z88.6 Allergy status to analgesic agent; Z91.048 Other nonmedicinal substance allergy status; Z79.52 Long term (current) use of systemic steroids; Z79.899 Other long term (current) drug therapy
CPT/HCPCS: 80047; 96365; 99284; J0875